=== PATIENT | male | born 1970 | race African-American/Black ===

== ENCOUNTER 2024-04-18 03:09 | Emergency (ER) | payer SELFPAY ==
--- NOTE | ~2024-04-18 | XR_ITS ---
Portable chest x-ray Comparison: None Clinical History: Orthopnea Findings: Lungs are clear, without focal consolidation or pleural effusion. Cardiomediastinal silho uette is prominent. Bones and soft tissues are unremarkable. Impression: Clear lungs. Suspected mild cardiomegaly. Reviewed, dictated and finalized at location . RCYCLE DELIVERER Impression: Clear lungs. Suspected mild cardiomegaly.
--- NOTE | 2024-04-18 03:17 | ECG_ITS ---
Test Date: 2024-04-18 03:37:57 Measurements Intervals [place] Rate: 63 P: 51 NM: 202 QRS: -38 QRSD: 94 T: 87 QT: 373 QTc: 384 Interpretive Statements SINUS RHYTHM MARKED LEFT AXIS DEVIATION [QRS AXIS < -30] NONSPECIFIC ST & T-WAVE ABNORMALITY No previous ECG available for comparison Electronically Signed On 04-18-2024 16:15:42 MENTAL HEALTH CLINICIAN by Iliana Ozuna M.D.
[2024-04-18 03:32] VITALS: BP 151/99; PULSE 72; RESP 16; TEMP 36.6; O2SAT 99
--- NOTE | 2024-04-18 04:24 | ED.SOB ---
HPI - SOB/Dyspnea General Chief Complaint: Shortness of Breath/Dyspnea Stated Complaint: SOB only when laying down and cough Time Seen by Provider: 04/18/24 04:11 History of Present Illness HPI Narrative: 53-year-old male with a past medical history including hypertension presenting to the emergency depart with URI type symptoms. He states he has been having a nonproductive dry cough for the last 24 hours associated with cough, congestion, difficulty laying in bed lying flat to sleep. He states he was otherwise in his normal state of health and denies any recent injuries or illnesses. No chest pain or difficulty breathing at rest. No recent medication changes, no nausea, vomiting, abdominal pain or back pain. Related Data Allergies Allergy/AdvReac Type Severity Reaction Status Date / Time No Known Allergies Allergy Verified 04/18/24 03:11 Review of Systems Review of Systems: As reviewed above in HPI Exam Narrative: GENERAL: [Well-appearing, well-nourished, and in no acute distress.] HEAD: [Normocephalic, atraumatic.] EYES: [PERRLA and EOMI.] ENT: Nares clear, no rhinorrhea or epistaxis. Mucous membranes moist. NECK: Supple. CHEST: [Clear to auscultation. No respiratory distress.] HEART: [Regular rate and rhythm]. No murmur heard. [Normal peripheral pulses.] ABDOMEN: [Soft, nondistended], [nontender], [No rigidity or guarding] EXTREMITIES: Normal range of motion. [No edema.] SKIN: Warm, dry, no rash. NEURO: [No focal deficits]. Alert and oriented [x3.] PSYCH: [Normal mood and affect.] Course Vital Signs Vital signs: Vital Signs Temperature 36.6 C 04/18/24 03:32 Pulse Rate 72 04/18/24 03:32 Respiratory Rate 16 04/18/24 03:32 Blood Pressure 151/99 H 04/18/24 03:32 Pulse Oximetry 99 04/18/24 03:32 Oxygen Delivery Room Air 04/18/24 03:32 Temperature 36.6 C 04/18/24 03:32 Pulse Rate 72 04/18/24 03:32 Respiratory Rate 16 04/18/24 03:32 Blood Pressure 151/99 H 04/18/24 03:32 Pulse Oximetry 99 04/18/24 03:32 Oxygen Delivery Room Air 04/18/24 04:33 MDM - SOB/Dyspnea MDM Narrative Medical decision making narrative: 53-year-old otherwise healthy appearing male with history of hypertension presenting to the emergency room with chief complaint of URI type symptoms including dry cough, congestion, shortness a breath when he is trying to sleep. Symptoms going on for about 1 day. Previous to this he was otherwise in his normal state of health. No chest pain or difficulty breathing right now. He is saturating well on room air, afebrile, no tachycardia or tachypnea. He has clear breath sounds throughout, no posterior oropharyngeal swelling or erythema. We will swab him for COVID flu and RSV and obtain a chest x-ray. Patient will be treated symptomatically with pseudoephedrine, Flonase and given a ibuprofen. Patient tested positive for influenza A his chest x-ray was independently reviewed by myself. I do not appreciate any solid consolidations, pneumonia, pneumothorax or any acute concerns. Patient was re-evaluated symptomatic improvement and stable for discharge home at this time with return precautions and expected management instructions for his influenza. Patient would not benefit primarily for Tamiflu initiation given his lack of severe symptoms, lack of any significant comorbidities and otherwise good functional status at this time. Medical Records Attestation: I reviewed the patient's medical records. Lab Data Attestation: I reviewed the patient's lab results. Labs: Lab Results 04/18/24 Range/Units 04:26 Influenza A (RT-PCR) Positive A (Negative) Influenza B (RT-PCR) Negative (Negative) RSV (RT-PCR) Negative (Negative) SARS-CoV-2 RNA (RT-PCR) Negative (Negative) Imaging Data Attestation: I personally reviewed and interpreted this imaging study as follows: My impression: No pneumonia, pneumothorax or effusion Discharge Plan Discharge Clinical Impression: Influenza A Patient Disposition: Home, Self-Care Condition: Stable Instructions: Antibiotic Form, Influenza (ED) Additional Instructions: You have influenza a which is a viral illness causing an upper respiratory infection. He do not have any kind of pneumonia or complication from this. We recommend symptomatic controlling medications that he can obtain [id number]. Tylenol, ibuprofen for fever pain control, cough syrup for cough suppressing medications. Follow-up with regular doctor on outpatient basis. Patient Language: Scottish Prescriptions: New acetaminophen [Tylenol Extra Strength] 500 mg tablet 1,000 mg PO TID PRN (Reason: pain) Qty: 30 0RF guaifenesin [Mucinex] 1,200 mg tablet extended release 12hr 1,200 mg PO Q12H Qty: 20 0RF loratadine [Claritin] 10 mg tablet 10 mg PO DAILY PRN (Reason: allergy symptoms) Qty: 20 0RF Follow-up/Referrals: PHYSICIAN,COMMUNICATIONS PROFESSIONAL [Primary Care Provider] - Time of Disposition: 05:17
[2024-04-18] MEDS: IBUPROFEN 600 MG TABLET PO (04:46)
[2024-04-18] MEDS: PSEUDOEPHEDRINE HCL 30 MG TABLET PO (04:47)
[2024-04-18] MEDS: FLUTICASONE PROPIONATE 0.05% NA SPR 16 GM BTL (*BKC) 2 SPRAY NASAL (04:47)
[2024-04-18 05:05] LABS: Influenza A QL RT-PCR Positive (Negative); Influenza B QL RT-PCR Negative (Negative); RSV RNA, RT-PCR Negative (Negative); SARS-CoV-2 RNA PCR Negative (Negative)
--- OUTSIDE RECORDS SUMMARY | 2024-04-18 05:25 | XMS_ITS | Continuity of Care Document ---
Author Organization [facility] Address [address] [place] [address] Phone Care Team Providers Care Manager Math Name Role Phone Kenyetta Nixon RDH Unavailable Unavailab le Allergies, Adverse Reactions, Alerts Substance Reaction Status Criticality No Known allergies Medications Medication Instructions Dosage Effective Dates (start - stop) Status Comments amlodipine 2.5 mg tablet take 1 tablet by oral route every day 2.5 MG - Active Chantix Starting Month Dl 0.5 mg (11)-1 mg (42) tablets in dose pack take as directed on pack - Active Bystolic 10 mg tablet take 1 tablet (10M G) by oral route every day 10 MG - Active Zantac Maximum Strength 150 mg Tab Take 1 tablet by mouth 2 times daily. - Active amlodipine 5 mg tablet take 1 tablet by oral route every day 5 MG - Active Procedures Procedure Date Dental Intake Prophylaxis: Adult Oral Hygiene Instructions Dental Treatment Complete Dental Note Approval Code Advance Directives Directive Yes / No Effective Date File Name No Information Encounters Encounter Description Practice Location Reason(s) For Visit Diagnoses Date Provider [address], [address], [place] tel:[phone] [facility] No Information Tiffani Kumari. [address] [place], [address], [place]. tel:[phone] [address] [place], [address], tel:[phone] [facility] No Information 4 Edwar Jacob. [address] [place], [place], [facility], . tel:[phone] [facility], [address] [place] [address], [address], tel:[phone] [facility] No Information 3 Tiffani Kumari. [address] [place], [address], [place]. tel:[phone] [facility], [address] [place] [address], [address], [place] tel:[phone] [facility] [place] No Information 3 Layton Clay. [address] [place] [address], [facility], . tel:[phone] [facility], [address] [place] [address], [facility], [place] tel:[phone] [facility] Dysuria (chief complaint) Encounter for screening, unspecifiedDysuriaUn protected sexual intercourse 3 Jessica Bernardo. [address] [place] [address], [facility], . tel:[phone] [facility], [address] [place] [address], [facility], tel:[phone] [facility] [place] [facility] No Information 2 Paradsuraj Tafoya. [address] [place] [address], [facility], . tel:[phone] [facility], [address] [place] [address], [facility], tel:[phone] [facility] [place] Encounter for dental exam and cleaning w/o abnormal findings 2 Jennifer Vital. [address] [place], [place], [facility], . tel:[phone] [facility], [address] [place] [address], [facility], tel:[phone] [facility] [place] Encounter for dental exam and cleaning w/o abnormal findings Nov- 1 Raymond Uriarte. [address], [id number] [address] [place] [address], [address], [place]. tel:[phone] [place] [address], [address] [place] [address], [address], [place] tel:[phone] [facility] [place] Encounter for dental exam and cleaning w/o abnormal findings Sep-0 1 Jennifer Vital. [address] [place], [place], [facility], . tel:[phone] [place] [address], [address] [place] [address], [address], [place] tel:[phone] [place] [address] Encounter for dental exam and cleaning w/o abnormal findings 0 Benberry Latonya. [address], [id number] [address] [place] [address], [id number], [place]. tel:[phone] [place] [address], [address] [place] [address], [address], [place] tel:[phone] [facility] Encounter for dental exam and cleaning w/o abnormal findings 0 Benberry Latonya. [address], [id number] [address] [place] [address], [id number], [place]. tel:[phone] [facility], [address] [place] [address], [address], [place] tel:[phone] [facility] Encounter for dental exam and cleaning w/o abnormal findings 0 Raza Osullivan. [address] [place], [address], [place]. tel:[phone] [facility], [address] [place] [address], [address], [place] tel:[phone] [place] [address] Encounter for dental exam and cleaning w/o abnormal findings 0 Valery Quick. 785 [facility], [id number] [address] [place] [address], [address], [place]. tel:[phone] [facility], [address] [place] [address], [address], [place] tel:[phone] [facility] Encounter for dental exam and cleaning w/o abnormal findings 1201 8 Y[facility]ms. 105 [facility], [id number] [address] [place] [address], [address], [place]. tel:[phone] [facility], [address] [place] [address], [address], [place] tel:[phone] [facility] Encounter for dental exam and cleaning w/o abnormal findings Jun-1 0201 8 Quang Meier. [address] [place], [address], [place]. tel:[phone] [facility], [address] [place] [address], [address], [place] tel:[phone] [facility] Encounter for dental exam and cleaning w/o abnormal findings Basim-0 6-201 7 Aga Donohue. [address] [place], [address], [place]. tel:[phone] [facility], [address] [place] [address], [address], [place] tel:[phone] [facility] Encounter for dental exam and cleaning w/o abnormal findings Fe-2 3-201 7 Maribeth Howellberly. 105 [facility], [id number] [address] [place] [address], [id number], [place]. tel:[phone] [facility], [address] [place] [address], [address], [place] tel:[phone] [facility] [place] Encounter for dental exam and cleaning w/o abnormal findings Basim-0 8-201 6 Barry León. [address] [place], [address], [place]. tel:[phone] [facility], [address] [place] [address], [address], [place] tel:[phone] [facility] [place] Encounter for dental exam and cleaning w/o abnormal findings 2 6 Layton Palmeri. [address] [place], [address], [place]. tel:[phone] [facility], [address] [place] [address], [address], [place] tel:[phone] [facility] [place] DENTAL EXAMINATION 2 5 Raymond Uriarte. 105 [facility], [id number] [facility], [place], [address], [place]. tel:[phone] [facility], [address] [place] [address], [address], [place] tel:[phone] [facility] DENTAL EXAMINATION 6 5 Vero Esparza. 105 [facility], [place], [address], [place]. tel:[phone] [facility], [address] [place] [address], [address], [place] tel:[phone] [facility] DENTAL EXAMINATION 5 Maribeth Hanks. 105 [facility], [id number] [place], [address] [place] [address], [place]. tel:[phone] [facility], [address] [place] [address], [address], [place] tel:[phone] [place] [address] dysuria (chief complaint) Pain, UrinationSmoker, Current, 2- 4 Polly Peyton. 70 [facility], [id number] [address] [place] [address], [facility], [place]. tel:[phone] [facility], [address] [place] [address], [address], [place] tel:[phone] [facility] b/p check (chief complaint) HTN, BenignBronchitis, Acute 0- 2 Polly Peyton. 70 [facility], [id number] [place], [address], [place]. tel:[phone] [facility], [address] [place] [address], [facility], [place] tel:[phone] [place] [address] htn (chief complaint) HTN, Benign Mar- 2 Polly Todd. 70 [facility], [id number] [address] [place] [address], [facility], . tel:[phone] [facility], [address] [place] [address], [facility], tel:[phone] [facility] [place] DENTAL EXAMINATION 1 Yoly Simms. [address], [id number] [address] [place] [address], [facility], [place]. tel:[phone] [place] [address], [address] [place] [address], [facility], tel:[phone] [facility] [place] DENTAL EXAMINATION 1 Valery Blancosyd. [address], [id number] [address] [place] [address], [facility], . tel:[phone] [facility], [address] [place] [address], [facility], tel:[phone] [address] [place] [address] discuss abnormal blood results (chief complaint) ITP, Ideopathic Thrombocytopenic Purpura, Tidal Platelet Dysgenesis May-2 0-200 9 Draganescu Divina. [address], [id number] [address] [place] [address], [facility], . tel:[phone] [facility], [address] [place] [address], [facility], tel:[phone] [address] [place] [address] f/u from ER. (chief complaint) pain on LT. leg (chief complaint) AppendectomyNEUROPAT HY - MONONEURITIS NOS May-0 3-200 9 Draganescu Divina. [address], [id number] [address] [place] [address], [facility], [place]. tel:[phone] Family History Family Member Type Diagnosis Age At Onset Brother Problem (finding) hypertension Payers Payer name Insurance type Covered constitution party ID Authoriza tion(s) [employer] [place] [id number] Social History Type Description Quantity Date Captured Comments Sex Male Smoking Status No Information Sexual Orientation Straight or heterosexual Gender Identity Male Chief Complaint And Reason For Visit No Information Plan Of Treatment Date Type Action Status Goal FOBT/FIT. Due on due Goal SBIRT. Due on du e Goal Zoster vaccine (). Due on due Goal Depression screening. Due on due Goal FOBT. Due on due Goal Hep B Surface Ab, Quant. Due on due Goal FIT. Due on due Goal Colonoscopy. Due on 023 due Goal Hep B Core Ab, IgM. Due on due Goal Unhealthy drug use screening . Due on due Goal Tdap. Due on due Goal Lipid panel. Due on 023 due Goal Self-Management Goals. Due o n due Goal Influenza vaccine. Due on due Goal Hepatitis C screening. Due o n due Goal Tdap/Td. Due on due Goal ECG. Due on due Goal Urinalysis due Goal Tdap/Td. Due on due Goal HCV reflex to Quant RT PCR. Due on due Goal Hep B Core Ab, IgM. Due on due Goal Lipid panel. Due on due Goal Colonoscopy. Due on due Goal FOBT/FIT. Due on due Goal Hep B Surface Ab, Quant. Due on due Goal SBIRT. Due on du e Goal Zoster vaccine (). Due on due Goal Influenza vaccine. Due on due Goal HIV 1/0/2 Ag/Ab With Reflex. Due on due Goal Self-Management Goals. Due o n due Goal Urinalysis due Goal ECG. Due on due Goal FOBT/FIT. Due on due Goal Hep B Core Ab, IgM. Due on due Goal HIV 1/0/2 Ag/Ab With Reflex. Due on due Goal HCV reflex to Quant RT PCR. Due on due Goal Influenza vaccine. Due on due Goal SBIRT. Due on du e Goal Hep B Surface Ab, Quant. Due on due Goal Self-Management Goals. Due o n due Goal Tdap/Td. Due on due Goal Zoster vaccine (). Due on due Goal Lipid panel. Due on due Goal Colonoscopy. Due on due Goal ECG. Due on due Goal Urinalysis due Referral Ordered: Urinalysis ordered History Of Present Illness Encounter Date Complaint History Of Prese nt Illness Dysuria Onset: 1 week ag o. The patient describes it as burning. Symptom is aggravated by sexual activity. Additional information: sexually active, Patient with dysuria x1 week, reports burning on urination, increased frequency. Patient notes sexual activity approx 1 month ago, will also order STI panel.. Instructions Date Instruction Additional Infor elias STI panel orderedObt ain labs, anything abnormal you will receive a call/letter. Related to Unprotected sexual intercourse US consistent with U TIRx Bactrim x7 days Related to Dysuria Review medication side effects R elated to HTN, Benign Review medications Related to HT N, Benign Prescribe medications Related to HTN, Benign Assessments Type Assessment Date No Information
--- OUTSIDE RECORDS SUMMARY | 2024-04-18 05:25 | XMS_ITS | Clinical Summary ---
Author Organization [facility] Address [address] [place] [address] Care Team Providers Care District Court Justice Name Role Phone Fercho Gómez MD Primary Care Provider Allergies No known active allergies Medications Medication Sig Dispensed Refills Start Date End Date Status valsartan-hydrochlo roTHIAZIDE 320-25 MG per tablet valsartan 320 mg-hydrochlorothia zide 25 mg tablet TAKE 1 TABLET BY MOUTH EVERY DAY Active diltiazem ER 240 MG 24 hr capsule Take 1 capsule by mouth daily. 90 capsule 4 01/09/2022 Active carvedilol 25 MG tablet Take 1 tablet by mouth 2 times a day. 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 Hypertension Social History Tobacco Use Types Packs/Day Years Used Date Smoking Tobacco: Every Day Cigars Smokeless Tobacco: Never Tobacco Cessation:Ready to Q uit: Not Asked; Counseling Given: Not Answered Alcohol Use Standard Drinks/Week Comments Yes 0 (1 standard drink = 0.6 oz pur e alcohol) PHQ-2 Answer Date Recorded PHQ-2 Score 1 01/11/2023 Sex and Gender Information Value Date Recorded Sex Assigned at Male 01/11/2023 9:19 AM EDT Gender Identity Male 01/11/2023 9:19 AM EDT Sexual Orientation Straight 01/11/2023 9: 19 AM EDT Job Start Date Occupation Industry Not on file Not on file Not on file Last Filed Vital Signs Vital Sign Reading Time Taken Comments Blood Pressure 167/113 01/11/2023 9:17 AM EDT Pulse 59 01/11/2023 9:17 AM EDT Temperature 36 ??C (96.8 ??F) 01/11/2023 9:17 AM EDT Respiratory Rate 20 11/26/2022 10:08 AM EDT Oxygen Saturation - - Inhaled Oxygen Concentration - - Weight 90.3 kg (199 lb) 01/11/2023 9:17 AM EDT Height 185.4 cm (6' 1 ) 01/11/2023 9:17 AM EDT Body Mass Index 26.25 01/11/2023 9:17 AM EDT Plan of Treatment Health Maintenance Due Date Last Done Comments Blood Pressure Screening 1968 CT COLONOGRAPHY Q 5 years 1968 FIT/FOBT Q 1 Year 1968 FLEXIBLE SIGMOIDOSCOPY Q 5 years 1968 HEPATITIS C SCREENING 1968 Pneumococcal 0-64 Vaccine (1 of 2 - PCV) 1974 HIV SCREENING ONCE 07/12/1983 COLOGUARD Q 3 YEARS 1986 LIPIDS 1986 DTAP/TDAP/TD Vaccine (1 - Tdap) 07/12/1987 Diabetes Screening 2013 PSA COUNSELING 2018 ZOSTER VACCINES (1 of 2) 2018 COVID-19 Vaccine ( season) 2023 01/29/2022, 10/20/2020, 06/17/2020, Additional history exists INFLUENZA Vaccine (#1) 2023 , 12/31/2016, 04/03/2016 COLONOSCOPY 02/04/2031 02/04/2021 COMBO COLO Topic NEW 02/04/2031 Abdominal Aortic Aneurysm (AAA) Screening / Surveillance Completed 08/27/2020 HPV Vaccine Aged Out No longer eligi ble based on patient's age to complete this topic Hepatitis A Vaccine Aged Out No longe r eligible based on patient's age to complete this topic Care Teams District [address] Justice Relationship Specialty Start Date End Date Fercho Gómez MD [address], [address] [place] [address] PCP - General Internal Medicine 10/16/21
--- OUTSIDE RECORDS SUMMARY | 2024-04-18 05:25 | XMS_ITS | Encounter Summary ---
Author Organization [facility] Address [address] [place] [address] Care Team Providers Care Wire Communications Engineer Name Role Phone Fercho Gómez MD Primary Care Provider Encounter Details Date Type Department Care Team (Late st Contact Info) Description 11/26/2022 Procedure [facility] [address] [facility] [place] [address] Social History Tobacco Use Types Packs/Day Years Used Date Smoking Tobacco: Every Day Cigars Smokeless Tobacco: Never Alcohol Use Standard Drinks/Week Comments Yes 0 (1 standard drink = 0.6 oz pur e alcohol) PHQ-2 Answer Date Recorded PHQ-2 Score 0 11/26/2022 Sex and Gender Information Value Date Recorded Sex Assigned at Male 01/11/2023 9:19 AM EDT Gender Identity Male 01/11/2023 9:19 AM EDT Sexual Orientation Straight 01/11/2023 9: 19 AM EDT Job Start Date Occupation Industry Not on file Not on file Not on file documented as of this encounter Functional Status Functional Status Response Date of Assess ment Does this person have difficulty dressing or bat marco? No 11/26/2022 documented as of this encounter Plan of Treatment Not on file documented as of this encounter Visit Diagnoses Not on filedocumented in this encounter Care Teams Wire Communications Engineer Relationship Specialty Start Date End Date Fercho Gómez MD [address], [address] [place] [address] PCP - General Internal Medicine 10/16/21 documented as of this encounter
--- OUTSIDE RECORDS SUMMARY | 2024-04-18 05:25 | XMS_ITS | Clinical Summary ---
Author Organization [facility] Address [address] [place] [address] Phone Care Team Providers Care Husbandry Technician Name Role Phone Unavailable Primary Care Provider Unavailabl e Immunizations Name Administration Dates Next Due Pfizer Sars-Cov-2 Vaccination 12Yrs+ Purple Top 06/17/2020,05/27/2020 Social History Tobacco Use Types Packs/Day Years Used Date Smoking Tobacco: Never Assessed Sex and Gender Information Value Date Recorded Sex Assigned at Not on file Gender Identity Not on file Sexual Orientation Not on file Plan of Treatment Health Maintenance Due Date Last Done Comments TDAP Vaccine 07/12/1979 Annual BMI Assessment 1986 Cervical Cancer Screening ev lisa 3 Years 1986 Cervical Cancer Screening 1986 Provide Tobacco Cessation Counseling 1986 Td Vaccine 1986 Tobacco Screening 1986 Hepatitis B Vaccines (1 of 3 - 19+ 3-dose series) 07/12/1987 Cervical Cancer Screening ev lisa 5 years 1998 Breast Cancer Screening 2008 Mammogram Every 3 Months 2008 Mammogram Every 6 Months 2008 Mammogram every 1 year 2008 Mammogram every [address] Colonography 2013 Colon Cancer Screening 2013 Colonoscopy 2013 FIT DNA 2013 Fecal Occult Blood Testing 2013 Flexible Sigmoidoscopy 2013 Zoster Vaccines (1 of 2) 2018 Influenza Vaccine (#1) 2023 DTaP,Tdap,and Td Vaccines (N o Doses Required) Completed HIB Vaccines Aged Out No longer eligi ble based on patient's age to complete this topic IPV Vaccines Aged Out No longer eligi ble based on patient's age to complete this topic Meningococcal Vaccine Aged Out No florencio mariaelena eligible based on patient's age to complete this topic Pneumococcal Vaccine: Pediat rics (0 to 5 Years) and At-Risk Patients (6 to 64 Years) Aged Out No longer eligible b ased on patient's age to complete this topic
--- OUTSIDE RECORDS SUMMARY | 2024-04-18 05:25 | XMS_ITS ---
Author Organization 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, site unspecified [facility] Unspecified ptosis of right eyelid [facility] Headache, unspecified [facility] Cervicalgia Insp [facility] Insurance Providers Payer name Policy type / Coverage type Policy ID Covered constitution party ID Covered constitution party's relationship to santos Policy Santos Plan Information BLUE CROSS/BLUE SHIELD PPO Spouse BENJI JAVIER [id number] 1 [employer] BC/BS MANAGED CARE PPO Spouse BENJI LICENSED REAL ESTATE BROKER [id number] 1 BLUE CROSS/BLUE SHIELD PPO Spouse BENJI LICENSED REAL ESTATE BROKER [id number] 1 [employer] BC/BS MANAGED CARE PPO Spouse BENJI JAVIER [id number] 1 [facility] ng Self NKEMDIRIM JAVIER 0 [employer] [facility] [id number] Self NKEMDIRIM LICENSED REAL ESTATE BROKER 0 [employer] [facility] [id number] Self NKEMDIRIM JAVIER 0 BLUE CROSS [place] PPO Spouse BENJI JAVIER [id number] 1 BLUE CROSS/BLUE SHIELD PPO Spouse BENJI JAVIER [id number] 1 [employer] BC/BS MANAGED CARE PPO Spouse BENJI HERRERA [id number] 1 Vital Signs Vital Sign Value Time Taken Authors Informants SEXUAL_ORIEN GENDER_ID TRANSPLANT FNCHANGECHEK PREFPHONE COMMONENROLL FULLREG [id number] NAMECHANGECH CONVERSATION NOP_STATUS CONSENT PAPERFORMS [id number]
--- OUTSIDE RECORDS SUMMARY | 2024-04-18 05:25 | XMS_ITS | Data Portability ---
Author Organization [employer] Address [address] [place] [id number] Care Team Providers Care Clock Repairer Name Role Phone JADEYAMILE FOSTER Primary Care Provider [phone] YAEL NINA OTHER LETHA MCKEON Manager Labor Delivery Assessment No assessment recorded. Plan of Treatment Reminders Order Date Submit Date Provider Last Modified By Organization Details Last Modified Time Details Appointments None recorded. Lab None recorded. Referral gastroenter ologist referral 2023 024 ayesha Nance MD, [address], [place], [address], 4 08:21:58 vascular surgeon referral - Please avoid any antiplatele t or DOAC's. He has history of brain AV malformatio ns. 2023 024 [email or web address] 4 Nasreen Montaño MD, [address], [address], [place], [address], 4 08:30:28 Procedures None recorded. Surgeries None recorded. Imaging CT, chest, w/o contrast 2023 024 [email or web address] 1 [facility] ? [address], [address], [address], [place], [address], 4 09:46:11 CT, coronary calcium score 2023 024 MARCIANO [facility] ? [address], [address], [address], [place], [address], 4 09:41:08 CT, chest, w/o contrast 2023 024 [facility] ? [address], [address], [place], [address], 4 08:07:59 US, duplex, arterial, lower extremity, complete 2023 024 [facility] [place], [address], [address], [place], [address], 4 08:51:51 US, duplex, venous, lower extremity, complete 2023 024 [facility] [place], [address], [address], [place], [address], 4 11:30:50 Medication Orders Combivent Respimat 20 mcg-100 mcg/actuati on solution for inhalation 2023 024 [id number], [address] [place], [address], 4 09:54:11 mefloquine 250 mg tablet 2023 024 [id number], [address], [place], [address], 4 15:21:46 tadalafil 20 mg tablet 2023 024 [id number], [address], [place], [address], 4 14:24:01 Patient TargetsNo targets recorded. Patient Instructions Encounter Date Encounter Id Patient Instructions Last Modified By Organization Details Last Modified Time 04/21/2023 [id number] Brain Arterioven ous Malformation Repair: Before Your Surgery Not available 04/21/2023 09:57:06 high blood pressure: care instructions Not available 04/21/2023 09:57:06 learning about h igh blood pressure Not available 04/21/2023 09:57:06 I personally interviewed and examined the patient. Discussed with the resident. Agree with findings and plan. Discussed at length with the patient. Agree with plan for doing coronary CT before starting him on statins. For repeat CT chest in May for incidental finding of 2 mm lung nodule. Not available 04/21/2023 09:57:03 08/19/2023 [id number] chronic obstruct talib pulmonary disease (COPD): care instructions Not available 08/19/2023 09:54:05 complete PFT w/ post bronchodilator spirometry* jbeteta Not available 08/26/2023 08:35:25 Brain Arterioven ous Malformation Repair: Before Your Surgery Not available 08/19/2023 09:54:06 high blood pressure: care instructions Not available 08/19/2023 09:54:05 learning about h igh blood pressure Not available 08/19/2023 09:54:05 I personally interviewed and examined the patient. Discussed with the resident. Agree with findings and plan. Agree with mefloquine prophylaxis for travel to [place]. Incidental finding of dilated thoracic aorta. Will continue to monitor by annual CT chest. Agree with PFTs for possible emphysema. He does have a long history of smoking. Agree with Combivent to be taken on as-needed basis. Further plan as per PFT findings. Incidental finding of groundglass appearance right lung. He was exposed to a lot of dust and fumes back in [place]. Will repeat CT chest in 3 months to follow-up. Blood pressure has been stable. No recent episodes of atrial fibrillation. Followed by cardiology as well. Not available 08/19/2023 09:56:36 10/26/2023 [id number] high blood pressure: care instructions Not available 10/26/2023 15:54:54 learning about h igh blood pressure Not available 10/26/2023 15:54:54 11/18/2023 [id number] Peripheral Arter ial Disease (PAD): Care Instructions Not available 11/18/2023 10:06:50 high blood pressure: care instructions Not available 11/18/2023 10:06:50 learning about h igh blood pressure Not available 11/18/2023 10:06:50 learning about healthy weight Not available 11/18/2023 10:06:50 I personally interviewed and examined the patient. Discussed with the resident. Agree with findings and plan. No localized stenosis in right lower extremity amenable to any intervention. Continue with cardiovascular risk modification. Avoid aspirin or any anticoagulation because of history of brain AV malformations. Not available 11/18/2023 10:05:59 02/29/2024 [id number] high blood pressure: care instructions Not available 02/29/2024 14:23:44 learning about h igh blood pressure Not available 02/29/2024 14:23:44 Virtual visit wa s performed using [employer] as platform. 25 minutes were spent on the visit. Not available 02/29/2024 14:23:26 Reason for Referral [employer] Manager Referral for History of polyp of colon Referring Physician: Yamile Jones, Internal Medicine, Encounter Date: 04/21/2023 Vascular Surgeon Referral fo r Peripheral vascular disease Please avoid any antiplatelet or DOAC's. He has history of brain AV malformations. Referring Physician: Yamile Jones, Internal Medicine, Encounter Date: 11/18/2023 Results Created Date Observation Date Name Description Value Unit Range Abnormal Flag Note LastModifiedBy Organization Detail LastModifiedTime 04/28/19 24 04/28/2023 CT, coron jessi calci um score CT Cardia c Scorin g [facility] [address], [place], [address], 04/28/2023 16:51:21 05/27/19 24 04/28/2023 CT, chest , w/o contr ast No observ ation record ed. [facility] ? [address], [place], [address], 05/27/2023 16:55:46 09/02/19 24 08/23/2023 compl ete PFT w/ post [facility] hodil ator mainor metry * No observ ation record ed. Not Available 10/25 15:34:09 10/26/19 24 10/22/2023 CT, chest , w/o contr ast No observ ation record ed. [email or web address] Not Available 10/25 15:49:52 11/05/19 24 11/03/2023 US, duple x, venou s, lower extre mity, compl ete No observ ation record ed. [email or web address] [place] [address] [facility] [place] [address], [place], [address], 11/18/2023 09:53:18 11/18/19 24 11/03/2023 US, duple x, arter ial, lower extre mity, compl ete No observ ation record ed. [email or web address] [address] [place] [address], [place], [address], 11/19/2023 10:49:31 11/18/19 24 US, duple x, arter ial, lower extre mity, compl ete No observ ation record ed. [address] [place] [address], [place], [address], 11/19/2023 10:49:31 Result Notes None recorded. Problems Name Problem SNOMED Code Status Onset Date Resolution Date Notes Provider Name and Address Organization Details Recorded Time Acute sinusiti s 38870937 Completed 12/31/2016 YAMILE JONES MD [address] [place] [address], [address], [place] [employer], [place] 7 08:47:12 [facility] hyperten adonay 58952470 Active YAMILE JONES MD [address] [place] [address], [address], [place] [employer], [place] 6 10:17:04 Leukocyt osis 377372052 Completed 12/31/2016 YAMILE JONES MD [address] [place] [address], [address], [place], [place] 3 14:02:34 Hyperten sive disorder 42633039 Completed 201304/03/2016 REPORTED BY: GERARD JONES MD [address] [place] [address], [address], [place] [employer], [place] 7 08:52:00 [facility] 389172093 Completed 12/31/2016 YAMILE JONES MD [address] [place] [address], [address], [place] [employer], [place] 7 08:47:49 Body mass index 25-29 - overweig ht 733204707 Active 2016 Fredis cedeno, [employer], [employer] 9 10:51:00 Tobacco dependen ce in [facility] 337134645 Completed 201709/07/2019 YAMILE JONES MD [address] [place] [address], [address] 1, [place] [employer], [place] 1 10:21:28 Cigarett e smoker 18840905 Completed 201712/27/2018 YAMILE JONES MD [address] [place] [address], [address] 1, [place] [employer], [place] 9 09:15:41 Acquired arteriov enous malforma tion 01556666755 08 Completed 201812/27/2018 YAMILE JONES MD [address] [place] [address], [address], [place] 9 09:15:35 Light cigarett e smoker (1-9 cigs/day ) 603191658 Active 2018 YAMILE JONES MD [address] [place] [address], [address], [place] [employer], [place] 9 08:59:03 Cerebral arteriov enous malforma tion 494244668 Active 2018 YAMILE JONES MD [address] [place] [address], [address] 1, [place] 9 09:15:31 Paroxysm al atrial fibrilla tion 098794961 Active 2019 YAMILE JONES MD [address] [place] [address], [address] 1, [place] 0 16:18:41 Patient advised about anti-mal aria prophyla xis 451539596 Active 2020 YAMILE JONES MD [address] [place] [address], [address] 1, [place] 13:21:16 Prediabe edy 718580916 Active 2020 YAMILE JONES MD [address] [place] [address], [address] 1, [place] 15:28:08 Family history of aneurysm of abdomina l aorta 408619227 Active 2020 YAMILE JONES MD [address] [place] [address], [address] 1, [place] 15:28:09 Pure hypercho lesterol emia 869903775 Active 2020 YAMILE JONES MD [address] [place] [address], [address] 1, [place] 10:21:19 Tobacco dependen ce in remissio n 804519827 Active 2020 YAMILE JONES MD [address] [place] [address], [address] 1, [place] [employer], [place] 1 10:21:28 History of polyp of colon 105617717 Active 2020 YAMILE JONES MD [address] [place] [address], [address] 1, [place] [employer], [place] 1 15:26:48 Acid reflux 081752475 Active 2021 YAMILE JONES MD [address] [place] [address], [address] 1, [place] [employer], [place] 2 09:30:10 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 077842229 Active 2021 YAMILE JONES MD [address] [place] [address], [address] 1, [place] [employer], [place] 2 13:44:49 Pain of left ankle joint 45228031902 515574 Completed 202102/09/2023 Earlene Tesfaye null, [facility], [employer] 3 21:17:07 Ascendin g aorta dilatati on 441181990 Active 2021 YAMILE JONES MD [address] [place] [address], [address] 1, [place] [employer], [place] 2 10:29:29 Primary erectile dysfunct ion 736097030 Active 2021 YAMILE JONES MD [address] [place] [address], [address] 1, [place] [employer], [place] 2 10:33:10 Leukocyt osis 655088935 Active 2022 YAMILE JONES MD [address] [place] [address], [address] 1, [place] [employer], [place] 3 14:02:34 Solitary nodule of lung 300568621 Active 2022 YAMILE JONES MD [address] [place] [address], [address] 1, [place] [employer], [place] 3 14:49:15 Migraine without aura 65310876 Active 2022 YAMILE JONES MD [address] [place], [address], [employer], [place] 3 09:02:24 Peptic ulcer 09442055 Active 2023 Radha cedeno [facility], [employer] 4 09:11:28 Gastroes ophageal reflux disease without esophagi tis 276135977 Active 2023 Radha cedeno, What[facility], [place] 4 09:26:43 Hyperten sive disorder 76842431 Completed 201307/22/2015 REPORTED BY: GERARD JONES MD [address] [place], [address], [employer], [employer] 7 08:52:00 Problem Notes None recorded. Procedures Surgical History Date Name Laterality Status Provider Name and Address Organization Details Recorded Time 02/05/20 colonoscopy and biopsy of colon completed Fredis [place] [facility], [facility] 02/10/2021 11:46:01 Appendectomy completed Fredis [place] [facility] 08/08/2015 14:56:00 Imaging Results Imaging Date Name Status LastModified by Organization Details LastModified Time 04/28/2023 CT, coronary calcium score [email or web address] [address] [facility] [address], [place], [address], 04/28/2023 16:51:21 04/28/2023 CT, chest, w/o contrast completed [facility] ? [address], [place], [address], 05/27/2023 16:55:46 08/23/2023 complete PFT w/ post bronchodilator spirometry* [facility] Information not available 10/26/2023 15:34:09 10/22/2023 CT, chest, w/o contrast completed Information not available 10/26/2023 15:49:52 11/03/2023 US, duplex, venous, lower extremity, complete completed [facility] [place] [address] [place], [address], 11/18/2023 09:53:18 11/03/2023 US, duplex, arterial, lower extremity, complete completed [facility] [place] [address] [place], [address], 11/19/2023 10:49:31 11/18/2023 US, duplex, arterial, lower extremity, complete [facility] [place] [address] [place], [address], 11/19/2023 10:49:31 Procedure Notes None recorded. Medical Equipment None Reported. Allergies Allergen ID Allergen Name Allergen Category Reaction Reaction Severity Criticality Documentation Date Start Date Code Code System Note Provider Name and Address Organization Details Recorded Time 72208 azilsarta n / chlorthal idone medicatio n abdominal pain moderate Not available 05/13/2017 26846 43 RxNorm KRISTINA [employer]att [employer], [employer] 0 13:44:37 Medications Name Sig Start Date Stop Date Status Note LastModified by Organization Details LastModified Time cyclobenz aprine 10 mg tablet TAKE 1 TABLET BY MOUTH THREE TIMES A DAY NEEDED 08/08 completed Not Available Not Available Not Available promethaz ine-DM 6.25 mg-15 mg/5 mL oral syrup Take 5 mL every 6 hours by oral route. 05/06 completed Not Available Not Available Not Available carvedilo l 25 mg tablet TAKE 1 TABLET BY MOUTH TWICE A DAY active Not Available Not Available No t Available doxycycli ne hyclate 100 mg capsule twice a day 02/16 completed Not Available Not Available Not Available trazodone 50 mg tablet TAKE 1/2 - 1 TABLET BY MOUTH AT BEDTIME NEEDED FOR INSOMNIA 08/08 completed Not Available Not Available Not Available ibuprofen 800 mg tablet three times a day Use PRN for pain 04/24 completed Sandyi joshua; Days: 20; three times a day; Issued Via: Electron ic ;PRN Flag:No; Disckayei nuedByUs er: SBnargis devine N ; Status Descript ion: Tomi gaona Not Available Not Available Not Available nifedipin e ER 90 mg tablet,ex tended release TAKE 1 TABLET BY MOUTH EVERY DAY 02/28 completed Not Available Not Available Not Available clarithro mycin 500 mg tablet TAKE 1 TABLET BY MOUTH TWICE A DAY WITH MEALS FOR 14 DAYS 08/18 completed Not Available Not Available Not Available doxycycli ne hyclate 50 mg capsule TAKE 1 CAPSULE BY MOUTH TWICE A DAY FOR 7 DAYS 08/18 completed Not Available Not Available Not Available Viagra 50 mg tablet 04/03 completed Not Available Not Available Not Available Zithromax Z-Dl 250 mg tablet TAKE 2 TABLETS (500 MG) BY ORAL ROUTE ONCE DAILY FOR 1 DAY THEN 1 TABLET (250 MG) BY ORAL ROUTE ONCE DAILY FOR 4 DAYS 05/06 completed Not Available Not Available Not Available amlodipin e 5 mg tablet TAKE 1 TABLET BY MOUTH EVERY DAY 08/18 completed Not Available Not Available Not Available mefloquin e 250 mg tablet Start 1 tablet once a week starting 2 weeks before the travel and then continue for 4 weeks after returnin g back to [facility]. 2023 active Not Available Not Available Not Avai lable ciproflox acin 500 mg tablet 11/01 completed Not Available Not Available Not Available sulfameth oxazole 800 mg-trimet hoprim 160 mg tablet TAKE 1 TABLET BY MOUTH EVERY 12 HOURS 06/01 completed Not Available Not Available Not Available omeprazol e 40 mg capsule,d elayed release TAKE 1 CAPSULE BY MOUTH EVERY DAY active Not Available Not Available No t Available tramadol 50 mg tablet Take 1 tablet every 6 hours by oral route as needed. 02/28 completed Not Available Not Available Not Available amoxicill in 500 mg tablet TAKE 2 TABLETS BY MOUTH TWICE A DAY FOR 14 DAYS 08/18 completed Not Available Not Available Not Available terbinafi ne HCl 250 mg tablet 12/11 completed Not Available Not Available Not Available amoxicill in 875 mg tablet TAKE 1 TABLET BY MOUTH TWICE A DAY FOR 7 DAYS 08/18 completed Not Available Not Available Not Available prednisol one acetate 1 % eye drops,charlene pension INSTILL 1 DROP INTO BOTH EYES BY OPHTHALM IC ROUTE4 TIMES A DAY 10/01 completed Not Available Not Available Not Available mefenamic acid 250 mg capsule Take by oral route for 30 days. 10/25 completed Not Available Not Available Not Available amlodipin e 10 mg tablet TAKE 1 TABLET BY MOUTH EVERY DAY 08/18 completed Not Available Not Available Not Available hydrocodo ne 7.5 mg-acetam inophen 325 mg tablet 07/19 completed Not Available Not Available Not Available polymyxin B sulfate 10,000 unit-trim ethoprim 1 mg/mL eye drops 07/19 completed Not Available Not Available Not Available diltiazem CD 120 mg capsule,e xtended release 24 hr TAKE 1 CAPSULE BY MOUTH EVERY DAY active Not Available Not Available No t Available ceftriaxo ne 500 mg solution for injection Take 1.3 mg by injectio n route. 08/18 completed Not Available Not Available Not Available hydrochlo rothiazid e 25 mg tablet TAKE 1 TABLET(S ) EVERY DAY BY ORAL ROUTE. 12/11 completed Not Available Not Available Not Available Dyazide 37.5 mg-25 mg capsule once a day 1 tab daily 05/06 completed Not Available Not Available Not Available levofloxa natalya 500 mg tablet TAKE ONE TABLET DAILY STARTING 1 DAY PRIOR TO PROCEDUR E FOR 3 DAYS UNLESS OTHERWIS E DIRECTED 08/18 completed Not Available Not Available Not Available methylpre dnisolone 4 mg tablets in a dose pack TAKE 6 TABLETS ON DAY 1 DIRECTED ON PACKAGE AND DECREASE BY 1 TAB EACH DAY FOR A TOTAL OF 6 DAYS 10/20 completed Not Available Not Available Not Available ketoconaz ole 2 % topical cream Apply by topical route for 30 days. 12/11 completed Not Available Not Available Not Available Tussionex [place] ic ER 10 mg-8 mg/5 mL suspensio n,extende d release Use PRN for cough/co ngestion 06/11 completed Disconti nued; Days: 7; 1 teaspoon by mouth every 12 hours; Issued Via: Print ;PRN Flag:No; Disconti nuedByUs er: SBhendwa sybil N ; Status Descript ion: Tomi gaona Not Available Not Available Not Available naproxen 500 mg tablet 11/01 completed Not Available Not Available Not Available diazepam 5 mg tablet Use before surgical procedur e as needed. Do not exceed 2 tablets a day. 07/19 completed Not Available Not Available Not Available amoxicill in 875 mg-potass ium clavulana te 125 mg tablet Take 1 tablet every 12 hours by oral route for 7 days. 04/03 completed Not Available Not Available Not Available valsartan 160 mg-hydroc hlorothia zide 25 mg tablet TAKE 1 TABLET BY MOUTH EVERY DAY 03/20 completed Not Available Not Available Not Available cyclobenz aprine 5 mg tablet TAKE 1 TABLET 3 TIMES A DAY BY ORAL ROUTE NEEDED. 02/16 completed Not Available Not Available Not Available olmesarta n 20 mg-hydroc hlorothia zide 12.5 mg tablet Take 1 tablet every day by oral route. 09/06 completed Not Available Not Available Not Available rosuvasta tin 5 mg tablet TAKE 1 TABLET BY MOUTH EVERY DAY active Not Available Not Available No t Available alfuzosin ER 10 mg tablet,ex tended release 24 hr TAKE ONE TABLET BY MOUTH AT DINNER OR BEDTIME DIRECTED 10/20 completed Not Available Not Available Not Available tadalafil 20 mg tablet 1 tab q 72 hours prn active Not Available Not Available No t Available valsartan 320 mg-hydroc hlorothia zide 25 mg tablet TAKE 1 TABLET BY MOUTH EVERY DAY active Not Available Not Available No t Available Chantix 1 mg tablet TAKE 1 TABLET BY MOUTH TWICE A DAY 11/12 completed Not Available Not Available Not Available butalbita l-acetami nophen-ca ffeine 50 mg-300 mg-40 mg capsule TAKE 1 CAPSULE BY MOUTH EVERY 4 HOURS NEEDED FOR PAIN 02/16 completed Not Available Not Available Not Available Chantix Starting Month Box 0.5 mg (11)-1 mg (42) tablets in dose pack As directed active Not Available Not Available No t Available Edarbyclo r 40 mg-25 mg tablet Take 1 tablet every day by oral route. 05/19 completed Not Available Not Available Not Available Combivent Respimat 20 mcg-100 mcg/actua tion solution for inhalatio n INHALE 1 PUFF 4 TIMES A DAY BY INHALATI ON ROUTE. active Not Available Not Available No t Available Lidocaine Pain Relief 4 % topical patch APPLY PATCH THREE TIMES A DAY NEEDED 08/08 completed Not Available Not Available Not Available EC-Naprox en 500 mg tablet,de layed release TAKE 1 TABLET TWICE A DAY BY ORAL ROUTE NEEDED. 01/26 completed Not Available Not Available Not Available Tiadylt ER 120 mg capsule,e xtended release TAKE 1 CAPSULE BY MOUTH EVERY DAY 01/26 completed Not Available Not Available Not Available Tiadylt ER 240 mg capsule,e xtended release TAKE 1 CAPSULE BY MOUTH EVERY DAY 08/18 completed Not Available Not Available Not Available Nurtec ODT 75 mg disintegr ating tablet 02/16 completed Not Available Not Available Not Available Vitals Date Recorded Body height Provider Name an d Address Organization Details Last Updated DateTime 04/21/2023 185.42 cm [employer] 04/21/2023 08:44:27 Date Recorded Body mass index (BMI) Body weight Provider Name and Address Organization Details Last Updated DateTime 04/21/2023 26.8 kg/m2 99032.69 g [employer] 04/21/2023 08:44:38 Date Recorded Body temperature Provider Name a nd Address Organization Details Last Updated DateTime 04/21/2023 93.2 [degF] [employer] 04/21/2023 08:48:44 Date Recorded Oxygen saturation Oxygen saturation in Arterial blood by Pulse oximetry Provider Name and Address Organization Details Last Updated DateTime 04/21/2023 96 % 96 % [employer] 04/21/2023 08:48:56 Date Recorded Respiratory rate Provider Name a nd Address Organization Details Last Updated DateTime 04/21/2023 15 /min [employer] 04/21/2023 08:48:59 Date Recorded Heart rate Provider Name an d Address Organization Details Last Updated DateTime 04/21/2023 66 /min Doris Daniel [place] - [employer] [place] [employer] 04/21/2023 08:49:01 Date Recorded Body height Provider Name an d Address Organization Details Last Updated DateTime 08/19/2023 185.42 cm Doris Daniel [place] - [employer] [place] [employer] 08/19/2023 09:03:06 Date Recorded Body mass index (BMI) Body weight Provider Name and Address Organization Details Last Updated DateTime 08/19/2023 26.6 kg/m2 09096.22 g Doris Sanchez [employer] [place] [facility] [place] [employer] 08/19/2023 09:03:12 Date Recorded Body temperature Provider Name a nd Address Organization Details Last Updated DateTime 08/19/2023 96.8 [degF] Doris Daniel [place] - [employer] [place] [employer] 08/19/2023 09:04:32 Date Recorded Oxygen saturation Oxygen saturation in Arterial blood by Pulse oximetry Provider Name and Address Organization Details Last Updated DateTime 08/19/2023 99 % 99 % Doris Sanchez [place] - [employer] [place] 08/19/2023 09:05:40 Date Recorded Heart rate Provider Name an d Address Organization Details Last Updated DateTime 08/19/2023 60 /min Doris Daniel [place] - [employer] [place] [employer] 08/19/2023 09:05:42 Date Recorded Respiratory rate Provider Name a nd Address Organization Details Last Updated DateTime 08/19/2023 15 /min Doris Daniel [place] - [employer] [employer] 08/19/2023 09:05:44 Date Recorded Body height Provider Name an d Address Organization Details Last Updated DateTime 10/26/2023 185.42 cm Doris Daniel [place] - [employer] [place] [employer] 10/26/2023 15:10:35 Date Recorded Body temperature Provider Name a nd Address Organization Details Last Updated DateTime 10/26/2023 97.2 [degF] Doris Daniel [place] - [employer] [place] [employer] 10/26/2023 15:12:46 Date Recorded Respiratory rate Provider Name a nd Address Organization Details Last Updated DateTime 10/26/2023 15 /min Doris Daniel [place] - [employer] [place] [employer] 10/26/2023 15:20:47 Date Recorded Body mass index (BMI) Provider Name and Address Organization Details Last Updated DateTime 10/26/2023 25.1 kg/m2 Doris Dianwoba - [email or web address] [employer] 10/26/2023 15:20:50 Date Recorded Body weight Provider Name an d Address Organization Details Last Updated DateTime 10/26/2023 70633.99 g Doris Dianwoba - [email or web address] [employer] 10/26/2023 15:20:51 Date Recorded Oxygen saturation Oxygen saturation in Arterial blood by Pulse oximetry Provider Name and Address Organization Details Last Updated DateTime 10/26/2023 99 % 99 % [employer] [employer] 10/26/2023 15:22:48 Date Recorded Heart rate Provider Name an d Address Organization Details Last Updated DateTime 10/26/2023 76 /min [facility] [employer] - [email or web address] 10/26/2023 15:22:49 Date Recorded Body height Provider Name an d Address Organization Details Last Updated DateTime 11/18/2023 185.42 cm [facility] [employer] - [email or web address] [employer] 11/18/2023 09:23:02 Date Recorded Body temperature Provider Name a nd Address Organization Details Last Updated DateTime 11/18/2023 98.2 [degF] Doris Dianwoba - [email or web address] [employer] 11/18/2023 09:26:15 Date Recorded Oxygen saturation Oxygen saturation in Arterial blood by Pulse oximetry Provider Name and Address Organization Details Last Updated DateTime 11/18/2023 97 % 97 % Doris [employer] [place] 11/18/2023 09:26:17 Date Recorded Respiratory rate Provider Name a nd Address Organization Details Last Updated DateTime 11/18/2023 15 /min Doris Dianwoba - [email or web address] [employer] 11/18/2023 09:26:19 Date Recorded Heart rate Provider Name an d Address Organization Details Last Updated DateTime 11/18/2023 64 /min Doris [employer] - [email or web address] [employer] 11/18/2023 09:26:21 Date Recorded Body height Provider Name an d Address Organization Details Last Updated DateTime 02/29/2024 185.42 cm Doris Dianwoba - [email or web address] [employer] 02/29/2024 14:09:24 Date Recorded Systolic blood pressure Diastolic blood pressure Provider Name and Address Organization Details Last Updated DateTime 04/21/2023 120 mm[Hg] 74 mm[Hg] Doris Sanchez [facility] 04/21/2023 08:48:52 Date Recorded Systolic blood pressure Diastolic blood pressure Provider Name and Address Organization Details Last Updated DateTime 08/19/2023 120 mm[Hg] 71 mm[Hg] Doris Daniel [place] 08/19/2023 09:05:47 Date Recorded Systolic blood pressure Diastolic blood pressure Provider Name and Address Organization Details Last Updated DateTime 10/26/2023 134 mm[Hg] 73 mm[Hg] Doris [employer] 10/26/2023 15:22:46 Date Recorded Systolic blood pressure Diastolic blood pressure Provider Name and Address Organization Details Last Updated DateTime 11/18/2023 133 mm[Hg] 72 mm[Hg] Doris [employer] 11/18/2023 09:26:27 Social History Question Answer Notes LastModified by Organizat ion Details LastModified Time Tobacco Smoking Status Former Smoker Vandana cedeno Em[place] 11/12/2020 09:53:44 Do You Have An Advance Directive? No Information not available 02/16/2023 What Is Your Level Of Alcohol Consumption? None Information not available 08/08/2015 Are You Blind Or Do You Have Difficulty Seeing? No Information not available 11/12/2020 What Is Your Level Of Caffeine Consumption? Occasional One Cup Of Coffee A Morning [email or web address] Information not available 09/07/2019 How Much Tobacco Do You Chew? None [email or web address] Information not available 12/12/2019 In The 14 Days Before Symptom Onset, Have You Had Close Contact With A Laboratory-confir med COVID-19 While That Case Was Ill? No [email or web address] Information not available 11/12/2020 In The 14 Days Before Symptom Onset, Have You Had Close Contact With A Person Who Is Under Investigation For COVID-19 While That Person Was Ill? No [email or web address] Information not available 11/12/2020 Have You Been To An Area Known To Be High Risk For COVID-19? No [email or web address] Information not available 11/12/2020 Are You Deaf Or Do You Have Serious Difficulty Hearing? No [email or web address] Information not available 11/12/2020 What Type Of Diet Are You Following? REGULAR Information not available 08/08/2015 Have You Processed Blood Or Body Fluids From An Ebola Virus Disease Patient Without Appropriate PPE? No [email or web address] Information not available 11/12/2020 Do You Reside In Or Have You Traveled To An Area Where Ebola Virus Transmission Is Active? No [email or web address] Information not available 11/12/2020 Do You Or Have You Ever Used E-cigarettes Or Vape? Never Used Electronic Cigarettes [email or web address] Information not available 12/22/2018 What Is The Highest Grade Or Level Of School You Have Completed Or The Highest Degree You Have Received? [id number] Information not available 02/16/2023 Which Of Your Hands Is Dominant? Right Information not available 03/10/2021 Is Your Current Relationship Stressful? Yes Information not available 02/16/2023 What Was The Date Of Your Most Recent Tobacco Screening? 02/29/2024 [email or web address] Information not available 02/29/2024 How Many Children Do You Have? 2 Information not available 02/16/2023 What Is Your Relationship Status? Information not available 02/16/2023 Seat Belts Used Routinely Yes Information not available 08/08/2015 Smoke Alarm In Home Yes Information not available 08/08/2015 At What Age Did You Start Smoking Tobacco? 18 Information not available 11/13/2022 Do You Or Have You Ever Used Smokeless Tobacco? Never Used Smokeless Tobacco [email or web address] Information not available 12/22/2018 How Much Tobacco Do You Smoke? 0.25 PPD Information not available 02/15/2019 Do You Use Any Illicit Or Recreational Drugs? No Information not available 03/10/2021 Has Tobacco Cessation Counseling Been Provided? No Information not available 03/10/2021 How Many Years Have You Smoked Tobacco? 10 Information not available 02/15/2019 Do You Or Have You Ever Used Any Other Forms Of Tobacco Or Nicotine? No Information not available 03/10/2021 Sex: Unknown Functional Status Question Answer Note LastModified by Organizat ion Details LastModified Time Do you have difficulty walking or climbing stairs? No [email or web address] Information not available 11/12/2020 Do you have transportation difficulties? No [email or web address] Information not available 11/12/2020 Are you able to walk? [email or web address] Information not available 03/10/2021 Do you have difficulty doing errands alone? No Information not available 11/12/2020 Are you able to care for yourself? Yes [email or web address] Information n ot available 11/12/2020 Do you have difficulty dressing or bathing? No Information not available 11/12/2020 What is your exercise level? Occasional Information not available 08/08/2015 Mental Status Question Answer Note LastModified by Organization D etails LastModified Time Do you have difficulty concentrating, remembering or making decisions? No Information no t available 11/12/2020 Family History Relationship Description Onset Age of this Age Resolved Age Notes LastModified by Organization Details LastModified Time Brother Hypertensive disorder Not available 02/28 08:48:40 Brother Intracranial aneurysm Not available 02/28 08:49:14 Medical History Condition Response High Blood Pressure Y High Cholesterol Y Headaches Y Immunizations Vaccine Type Date Status Note Provider Nam e and Address Organization Details Recorded Time Influenza, MDCK, quadrivalent, preservative 9 completed Not Available [facility] 04/08/2019 04:34:45 Influenza, MDCK, quadrivalent, PF 1 completed Molly cedeno Emida 03/20/2021 16:30:23 Influenza, split virus, trivalent, PF 7 completed Not Available [facility] 04/08/2019 04:32:11 Influenza, split virus, quadrivalent, PF 2 completed YAMILE JONES MD [address] [place] [address], [phone], [place] 01/26/2022 10:21:29 COVID-19, mRNA, LNP-S, PF, 30 mcg/0.3 mL dose 1 completed Not Available [facility] 11/18/2022 03:20:50 COVID-19, mRNA, LNP-S, PF, 30 mcg/0.3 mL dose 1 completed Not Available [facility] 11/18/2022 03:20:50 Influenza, split virus, quadrivalent, PF 3 completed YAMILE JONES MD [address] [place] [address], [phone], [facility] [employer] 02/16/2023 09:04:19 COVID-19, mRNA, LNP-S, PF, 30 mcg/0.3 mL dose 1 completed Not Available [facility] 11/18/2022 03:20:50 Influenza, split virus, trivalent, preservative 7 completed Not Available [facility] 04/08/2019 04:33:02 Influenza, MDCK, quadrivalent, preservative 8 completed Not Available [facility] 04/08/2019 04:33:35 Past Encounters Encounter ID Performer Location Encounter Start Date Encounter Closed Date Diagnosis/Indication Diagnosis SNOMED-CT Code Diagnosis ICD10 Code Diagnosis Note [id number] [address] [place] [address] [place] [address] 04/24/2015 00:00:00 [id number] [place] [address] 01/17/2015 00:00:00 [id number] [place] [address] 06/20/2014 00:00:00 [id number] Ni [place] [address] [place] [address] 06/11/2014 00:00:00 [id number] Ni [place] [address] [place] [address] 02/20/2014 00:00:00 [id number] Ni [place] [address] [address] 01/24/2014 00:00:00 [id number] [facility] [address] [facility] [address] [place] [id number] 08/08/2015 14:50:04 08/08/2015 15:19:47 Acute sinusitis 61847138 J01.90 Adult heal th examination 111855878 Z00.01 Essential hypertension 03196096 I10 [id number] [facility]y [facility] [address] 1 [place] [address] 08/27/2015 10:46:20 08/27/2015 11:39:55 Essential hypertension 15221919 I10 Leukocytosis 793374387 D 72.829 [id number] Mary Hampton [facility] [address] 1 [place] [address] 10/03/2015 09:42:06 10/03/2015 10:20:03 Leukocytosis 938710015 D72.829 Derangemen t of meniscus 615981168 M23.209 [id number] YAMILE JONES MD [facility] [place] [id number] 12/20/2015 11:27:58 12/20/2015 12:17:43 Acute pharyngitis 043384653 J02.9 Hypertensive disorder 38 484455 I10 Corns and callus 1767989 00 L84 [id number] YAMILE JONES MD [facility] [address] [address] 02/28/2016 11:20:26 02/28/2016 12:29:44 Upper respiratory infection 53749831 J06.9 [id number] YAMILE JONES MD [facility] [address] 1 [place] [address] 04/03/2016 08:15:31 04/03/2016 09:56:39 Adult health examination 310247210 Z00.01 Essential hypertension 06781637 I10 Nicotine dependence 5629 4008 F17.200 Only social smoker, not daily smoker Administra tion of influenza vaccine 47775624 Z23 [id number] YAMILE JONES MD [facility] [address] [address] 07/20/2016 08:50:29 07/20/2016 12:03:00 Essential hypertension 99588775 I10 Left sided abdominal pain 500344551 R10.9 Resolved Strain of tendon of medial thigh muscle 280629246 S76.812D Resolved. Nicotine dependence 5629 4008 F17.200 Only social smoker, not daily smoker Primary er ectile dysfunction 652713393 N52.9 Seen by Urology, continue zhens prn. [id number] YAMILE JONES MD [facility] [address] [facility] 1 [facility] [place] [address] 12/31/2016 08:22:08 12/31/2016 08:50:35 Administration of influenza vaccine 15204736 Z23 Essential hypertension 68623008 I10 Acute uppe r respiratory infection 57728274 J06.9 [id number] YAMILE OJNES MD [facility] [address] BRUSH 1 [facility] [place] [address] 05/06/2017 11:22:56 05/06/2017 13:00:43 Atypical chest pain 335830170 R07.89 Pure hypercholesterolemia 191365315 E78.00 LDL 106, HDL 28, 10 year CV risk 11.2 %. Discussed wit patient about statins, wants life style modificati ons first. Essential hypertension 20043107 I10 Suboptimal BP control Tobacco de pendence in remission 406426953 F17.201 [id number] YAMILE JONES MD [facility] [address] BRUSH 1 [place] [address] 05/13/2017 09:06:00 05/13/2017 09:47:22 Acute peptic ulcer 378823800 K27.3 Call or go to ER if pain gets worse. Will consider EGD if pain persists. Adverse re action to drug 19047194 T45.95XA Stop edarbyclor . Go back on amlodipine Atypical chest pain 1025 27990 R07.89 Resolved, due to see cardiology , considerin g risk factors, consider tread mill stress test. Pain most likely from peptic ulcer. [id number] YAMILE JONES MD [facility] [address] [place] [address] 05/19/2017 10:04:53 05/19/2017 11:21:34 Essential hypertension 35607822 I10 BP much better controlled , target SBP less 130. Chest pain 88204289 R07. 9 Resolved . FU with cardiology , consider EST Pure hypercholesterolemia 211141556 E78.00 LDL 106, HDL 28, 10 year CV risk 11.2 %. Discussed with patient about statins, wants life style modificati ons first. [id number] YAMILE JONES MD [facility] [address]NA [facility] [place] [address] 07/02/2017 08:57:23 07/02/2017 09:16:45 Essential hypertension 25353834 I10 BP well controlled . Continue current meds. Pure hypercholesterolemia 861880725 E78.00 LDL 118, HDL 28. 10 year CV risk 7.5 %. Discussed with patient about statins. Wants to try life style modificati ons first. Will repeat lipids in 4 months. Patient ad vised about anti-malaria prophylaxis 180246632 Z71.89 Going to [place]. [id number] YAMILE JONES MD [facility] [address] HANNA [address] [address] 11/01/2017 08:57:36 11/01/2017 09:35:51 Essential hypertension 67551293 I10 BP well controlled . Continue current meds. Pure hypercholesterolemia 780180146 E78.00 His last LDL was 118. Ten-year cardiovasc ular risk was under 10%. He only has 1 risk factor for coronary disease. Continue with diet and lifestyle modificati on. Check lipids in 2 months. Family his tory of aneurysm of blood vessel of brain 4967176693 5566460 Z82.49 [id number] YAMILE JONES MD [facility] [address]NA [facility] [place] [address] 11/18/2017 09:19:48 11/18/2017 09:59:00 Contusion of rib 020349512 S20.20XA Foot pain 37840034 M79.6 71 Primary gout 06241529 M1 0.00 Cerebral arteriovenous malformation 822656532 Q28.2 [id number] YAMILE JONES MD [facility] [address] [address] 12/02/2017 09:53:12 12/02/2017 11:47:09 Cerebral arteriovenous malformation 097120022 Q28.2 Is not symptomati c. We will continue to follow. Will refer to neurosurge ry for evaluation . Foot pain 16129852 M79.6 71 Resolved. Patient ad vised about anti-malaria prophylaxis 945218800 Z71.89 Going to [place]. [id number] YAMILE JONES MD [facility] [address] [address] 02/28/2018 08:26:01 02/28/2018 08:53:50 Administration of influenza vaccine 49385357 Z23 Essential hypertension 50290873 I10 BP well controlled . Continue current meds. Cerebral arteriovenous malformation 180056714 Q28.2 Is not symptomati c. We will continue to follow. Will refer to neurosurge ry for evaluation . Cigarette smoker 9385067 7 F17.210 Smokes 5-7 cigarettes a day. Not ready to quit yet. Adult [facility] th examination 133157886 Z00.00 Depression screening 171 894933 Z13.31 PHQ score is 0 Body mass index 25-29 - overweight 505303783 Z68.25 [id number] YAMILE JONES MD [facility] [address] [address] 07/19/2018 08:29:55 07/19/2018 09:00:10 Acquired arteriovenous malformation 6845957815 108 I99.8 Essential hypertension 79178306 I10 BP well controlled . Continue current meds. Light ciga rette smoker (1-9 cigs/day) 039455227 F17.210 Once again advised patient to stop smoking. [id number] YAMILE JONES MD [facility] [address] [address] 12/22/2018 16:30:09 12/22/2018 17:07:11 [id number] YAMILE JONES MD [facility] [address] [address] 12/27/2018 08:54:20 12/27/2018 09:22:20 Epigastric pain 32665052 R10.13 Most likely secondary to gastric ulcer. Pancreatit is is extremely unlikely. Cerebral arteriovenous malformation 796236640 Q28.2 Due to follow-up with neurosurge ry at [facility] Essential hypertension 25700421 I10 BP well controlled . Continue current meds. Adult heal th examination 197707088 Z00.00 Administra tion of influenza vaccine 68832863 Z23 [id number] YAMILE JONES MD [facility] [address] [address] 02/15/2019 09:38:47 02/15/2019 10:45:10 Essential hypertension 82831391 I10 BP well controlled . Continue current meds. Cerebral arteriovenous malformation 877025530 Q28.2 Follow-up with neurosurge ry at [facility]. Planned for CT angiogram cerebral arteries. Acute peptic ulcer 1999 K27.3 Advised patient to take omeprazole daily for 3 months. After that he can try and stop it. Prediabetes 214963944 R7 3.03 Will repeat hemoglobin A1c in 4 months. [id number] YAMILE JONES MD [facility] [address] [place] [employer] [address] [address] 03/06/2019 10:04:14 03/06/2019 11:35:20 Cerebral arteriovenous malformation 433819114 Q28.2 Patient had recent MRA at [place]. States that he will be gong back for embolizati on on 04/05. Prediabetes 635396400 R7 3.03 Last HgbA1C in 12/2018 was 5.9%. Essential hypertension 62578315 I10 BP well controlled . Continue current meds. Gastroesop hageal reflux disease 922575772 K21.9 Controlled . Continue with PPI. Ganglion of wrist 20280621 009 M67.439 Pain likely from ganglion cyst. Will refer patient to orthopedic to get cortisone shot. Patient ad vised about anti-malaria prophylaxis 693366007 Z71.89 Going to [place]. [id number] YAMILE JONES MD [facility] [address] [place] H[place]NA [place] [address] [place] [address] 04/25/2019 09:56:17 04/25/2019 11:17:15 Cerebral arteriovenous malformation 599044807 Q28.2 Follow-up with neurosurge ry for elective surgical correction of AV malformati on and fistula. Paroxysmal atrial fibrillation 627866503 I48.0 CHADVascsc ore is 1. Heart rate is well controlled . He is completely asymptomat ic. There is a relative complicati on for antiplatel et agents because of history of AV malformati ons. Follow-up with cardiology . Essential hypertension 89834337 I10 Cardiologi [address] felt amlodipine to diltiazem which is also helping with control of heart rate. Continue with the same. Situationa l panic attack 961863116 F41.0 [id number] YAMILE JONES MD [facility] [address] [address] 07/20/2019 12:58:01 07/20/2019 16:52:06 Essential hypertension 90745817 I10 Cerebral arteriovenous malformation 052491851 Q28.2 Paroxysmal atrial fibrillation 177429450 I48.0 CHADVascsc oreis 1. Followed by cardiology . Negative contraindi cation for anticoagul ation because of history of AV malformati ons in the brain. [id number] YAMILE JONES MD [facility] [address] [address] 09/07/2019 08:17:08 09/07/2019 11:36:46 Adult health examination 098701406 Z00.00 Prediabetes 111864149 R7 3.03 Last HgbA1C in 12/2018 was 5.9%. Body mass index 25-29 - overweight 316243837 Z68.26 Cerebral arteriovenous malformation 441273634 Q28.2 Planned for radiation. Essential hypertension 60858312 I10 Blood pressures well controlled now. Previously high readings were possibly secondary to stress. Continue with diltiazem and hydrochlor othiazide. No need to start olmesartan /hydrochlo rothiazide . Light ciga rette smoker (1-9 cigs/day) 836110264 F17.210 He is only smoking 2 to 3 cigarettes a day. Once again advised him to quit smoking altogether . Paroxysmal atrial fibrillation 950345899 I48.0 CHADVascsc oreis1. Followed by cardiology . Relative contraindi cation for anticoagul ation because of history of AV malformati ons in the brain. Heart rate well controlled with diltiazem. Hepatitis C screening 41 3355781 Z11.59 Screening for malignant neoplasm of prostate 221526393 Z12.5 Depression screening 171 634052 Z13.31 PHQ score is 0 Screening for malignant neoplasm of colon 658243949 Z12.11 [id number] YAMILE JONES MD [facility] [address] [address] 11/07/2019 10:46:15 11/07/2019 12:07:45 Essential hypertension 55412888 I10 BP was 140/90. At home SBP 135-150s.. Patient is no longer stressed. Continue diltiazem, and start valsartan- HTZ. Stop amlodipine , was d/gilmer. Paroxysmal atrial fibrillation 603586771 I48.0 CHADVascsc oreis1. Followed by cardiology . Relative contraindi cation for anticoagul ation because of history of AV malformati ons in the brain. Heart rate well controlled with diltiazem. Cerebral arteriovenous malformation 022454264 Q28.2 Last MRI was 10/2018. No new headaches, sensitivit y to light/soun d, or changes in vision. Repeat MRI. f/u with neuro. Prediabetes 354589298 R7 3.03 Last HgbA1C in 12/2018 was 5.9%. [id number] YAMILE JONES MD [facility] [address] [address] 12/12/2019 08:30:48 12/12/2019 11:41:37 Body mass index 25-29 - overweight 814938930 Z68.26 Cerebral arteriovenous malformation 857876651 Q28.2 Status post radiation treatment. Followed by neurosurge ry at [facility]. Essential hypertension 61694382 I10 BP is better controlled at home, between SBP 130-140; Continue diltiazem, and valsartan- HTZ. Stop amlodipine , was d/gilmer. Prediabetes 741460735 R7 3.03 Last HgbA1C in 12/2018 was 5.9%. patient has not followed up on labs. will repeat. Screening for malignant neoplasm of prostate 616552612 Z12.5 [id number] YAMILE JONES MD [facility] [address] [address] 06/24/2020 12:57:35 06/24/2020 13:31:00 Essential hypertension 65168583 I10 Blood pressure well controlled . Today's readings are 128/80. Continue with the valsartan/ hydrochlor othiazide. Paroxysmal atrial fibrillation 767820851 I48.0 CHADVascsc oreis1. Continues to be normal sinus rhythm. Heart rate well controlled . Continue with diltiazem CD. Difficult indication for anticoagul ation because of history of AVM in the brain. Cerebral arteriovenous malformation 395645612 Q28.2 Status post radiation treatment. Followed by neurosurge ry at [facility]. Patient ad vised about anti-malaria prophylaxis 334714708 Z71.89 Going to [place]. Prediabetes 395857788 R7 3.03 Hemoglobin A1chas gone up to 6.0. We will continue to monitor. Viral screening 37411023 4 Z11.52 [id number] YAMILE JONES MD [facility] [address] [address] 07/29/2020 14:52:28 07/29/2020 15:53:59 Syncope and collapse 099526976 R55 Cerebral arteriovenous malformation 300413811 Q28.2 Status post radiation treatment. Followed by neurosurge ry at [facility]. Essential hypertension 99826257 I10 Blood pressure well controlled . Today's readings are 128/80. Continue with the valsartan/ hydrochlor othiazide. Paroxysmal atrial fibrillation 351978028 I48.0 CHADVascsc oreis1. Rule out cardiac dysrhythmi a during syncopal episode. Will put him on 14 days Holter monitor. If negative he may need loop recorder. We will also refer to cardiology . Prediabetes 236353308 R7 3.03 Family his tory of aneurysm of abdominal aorta 373683753 Z82.49 Intermitte nt claudication 83743030 I73.9 Contusion of lower back 886904568 S30.0XXA Contusion of thoracic spine 319996876 S24.159A Light ciga rette smoker (1-9 cigs/day) 935637900 F17.210 He is only smoking 2 to 3 cigarettes a day. Once again advised him to quit smoking altogether . [id number] YAMILE JONES MD [facility] [address] [address] 09/09/2020 15:25:26 09/09/2020 16:10:58 Leukocytosis 893880758 D72.829 Most likely reactive. Will repeat CBC in 3 months. Prediabetes 996958688 R7 3.03 Hemoglobin [id number] y elevated at 5.8. Discussed with him about diet and lifestyle modificati on. We will repeat labs in 3 months. Pure hypercholesterolemia 236229561 E78.00 Total cholestero l 185, HDL 27, LDL 142. 10-year cardiovasc ular risk is 19.2%. However, he is only a very light smoker smoking 1 to 2 cigarettes a day. If he was not smoking his cardiovasc ular risk would be 11%. Discussed with him about use of statins. He would rather modify his cardiovasc ular risk factors including stopping smoking and watching his diet. We will recheck lipids in 4 months. Syncope and collapse 309 527477 R55 All the work-up including carotid Doppler, echocardio gram and lab work is normal. Most likely vasovagal. Normal Holter as well. Will defer to cardiology if further work-up is needed. Cerebral arteriovenous malformation 909707469 Q28.2 Repeat MRI did not show any change of small AV malformati on which was irradiated . Due to follow-up with neurosurge ry at [place]. Paroxysmal atrial fibrillation 618309291 I48.0 Holter monitor did show very short runs of atrial fibrillati on. Will refer to cardiology to see if there is any indication for loop monitor. Light ciga rette smoker (1-9 cigs/day) 253600022 F17.210 He is only smoking 2 to 3 cigarettes a day. Once again advised him to quit smoking altogether . [id number] MIGUELITO REAL MD [facility] [address] [address] 10/01/2020 09:33:35 10/01/2020 10:14:04 Cerebral arteriovenous malformation 432165183 Q28.2 Essential hypertension 10481805 I10 Paroxysmal atrial fibrillation 186424151 I48.0 [id number] YAMILE JONES MD [facility] [address] [address] 11/12/2020 09:41:53 11/12/2020 10:24:02 Adult health examination 346388606 Z00.00 Depression screening 171 522535 Z13.31 PHQ score is 0 Essential hypertension 34962844 I10 Blood pressure well controlled on valsartan/ hydrochlor othiazide. Today's readings are 129/77. Paroxysmal atrial fibrillation 022960793 I48.0 Holter monitor did show very short runs of atrial fibrillati on. He was seen by cardiologi who recommende d continuati on of calcium channel blockers. No indication for anticoagul ation. [id number] Sc score is 1. Prediabetes 594518249 R7 3.03 Hemoglobin J0hevnprfs y elevated at 5.8. Discussed with him about diet and lifestyle modificati on. We will repeat labs in 3 months. Pure hypercholesterolemia 627543314 E78.00 Total cholestero l 185, HDL 27, LDL 142. 10-year cardiovasc ular risk is 19.2%. However, he is only a very light smoker smoking 1 to 2 cigarettes a day. If he was not smoking his cardiovasc ular risk would be 11%. Light ciga rette smoker (1-9 cigs/day) 903898069 F17.210 He was taking Chantix but he was advised to stop by the pharmacy as Chantix is on recall. Tobacco de pendence in remission 484264692 F17.201 Prior to this he was only smoking 2 to 3 cigarettes a day. Now he stopped smoking altogether . Screening for malignant neoplasm of colon 067248901 Z12.11 Screening for malignant neoplasm of prostate 568769149 Z12.5 Body mass index 20-24 - normal 075100947 Z68.24 Hepatitis C screening 41 7359254 Z11.59 [id number] YAMILE JONES MD [facility] [address] [address] 03/10/2021 15:04:15 03/10/2021 15:29:43 Insomnia 469308213 G47.00 Essential hypertension 06914547 I10 Blood pressure since running high most likely secondary to stress. Once again advised to work on his stress. Will increase pulse to 320 mg daily along with hydrochlor othiazide 25 mg. Paroxysmal atrial fibrillation 133379438 I48.0 Doing well on diltiazem. Continue the same. Not a candidate for anticoagul ation because of very low [id number] Sc score of 1. Prediabetes 454386557 R7 3.03 Hemoglobin A1c has gone up to 6.0. Possibly stress related. Once again discussed with him about diet and lifestyle modificati on. We will continue to monitor. Pure hypercholesterolemia 592242095 E78.00 Lipid panel dated 02/12/2021 : Total cholestero l 176, triglyceri evans 84, HDL 28, LDL 132. 10-year cardiovasc ular risk is 10.1%. He is not keen on starting a statins as yet. We will continue to monitor. History of polyp of colon 556630612 Z86.010 Status post colonoscop y January 2021. Benign polyps on colonoscop y. For repeat colonoscop y in 2023. Primary er ectile dysfunction 056317594 N52.9 [id number] YAMILE JONES MD [facility] [address] [place] [address] [address] [address] 03/20/2021 14:16:02 03/20/2021 14:56:43 Ankle pain 628810858 M25.579 Possibly gout. Will check uric acid levels and start him on low-dose Medrol pack. We will also get imaging studies. If gout is ruled out will refer him to orthopedic s. Persistent insomnia 1918 58358 G47.09 Administra tion of influenza vaccine 24873493 Z23 [id number] YAMILE JONES MD [facility] [address] [place] [address] [address] [address] 05/02/2021 11:32:44 05/02/2021 12:00:56 Essential hypertension 64723400 I10 Blood pressure readings 145/83. If his blood pressure stays high will adjust his regimen. Patient ad vised about anti-malaria prophylaxis 056482367 Z71.89 Going to [place]. 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 Most likely pseudogout . [id number] YAMILE JONES MD [facility] [address] [address] 08/08/2021 11:35:26 08/08/2021 12:15:33 Essential hypertension 03089943 I10 Blood pressure readings 145/83. If his blood pressure stays high will adjust his regimen. Paroxysmal atrial fibrillation 752505205 I48.0 [id number] Sc score of 1.. No recent episode of atrial fibrillati on. Followed by cardiology . Continue with calcium channel blockers. Cerebral arteriovenous malformation 509737666 Q28.2 Due to see neurosurge on at [place] in October 2021. Denies any symptoms. Prediabetes 135349578 R7 3.03 We will recheck labs in October 2021. Pure hypercholesterolemia 538127261 E78.00 Lipid panel dated 02/12/2021 : Total cholestero l 176, triglyceri evans 84, HDL 28, LDL 132. 10-year cardiovasc ular risk is 10.1%. He is not keen on starting a statins as yet. We will continue to monitor. [id number] YAMILE JONES MD [facility] [address] [address] 11/10/2021 08:51:54 11/10/2021 10:52:20 Essential hypertension 64109715 I10 Blood pressure reading is slightly elevated today 151/103, repeat 140s/60spa tient is concerned that his blood pressure fluctuates at homeencour aged to record his BP for 1 weekcontin ue valsartan- HTZ for now Paroxysmal atrial fibrillation 759116646 I48.0 [id number] Sc score of 1.. No recent episode of atrial fibrillati on, although lately has been having palpitatio ns, suspected to be PVCS by Dr. Hernandez. Holter monitor recently done.Irma nue diltiazem Cerebral arteriovenous malformation 775807615 Q28.2 Patient has scheduled appointmen t with neurosurge on at [place] October 2021.MRA done 08/2020: left frontal small AVMS, 7 mm aneurysm, not grown in sizewill repeat MRA before his appointmen t Pure hypercholesterolemia 281097728 E78.00 Lipid panel dated 02/12/2021 : Total cholestero l 176, triglyceri evans 84, HDL 28, LDL 132. 10-year cardiovasc ular risk is 10.1%. He is not keen on starting a statins as yet. We will continue to monitor. Intermitte nt palpitations 677516266 R00.2 Patient had intermitte nt palpitatio ns and dyspnea on exertionPa tient wore holter monitor for 24 hoursDr. Raineer suspected PVCS - EKG was abnormal , CXR completedi s scheduled for echocardio gram and nuclear stress test Adult [facility] th examination 276432772 Z00.00 Acid reflux 270061723 K2 1.9 no issues with acid reflux latelyhas omeprazole 40 mg, taking as needed Depression screening 171 219888 Z13.31 PHQ score is 0 Screening for malignant neoplasm of prostate 732852938 Z12.5 PSA last checked 01/2021: 0.9patient has 1 night time awakening, some retention, but not impacting day to daywill repeat PSA in 2022 Screening for malignant neoplasm of colon 784005521 Z12.11 Patient had colonoscop y 02/04/21: a few polyps removed including 10 mm pedunculat ed at hepatic flexure, small flat sessile at transverse , descending colon, sigmoid colon.cayden ent will likely need to go back for repeat in 3 years Body mass index 25-29 - overweight 459447937 Z68.26 [id number] YAMILE JONES MD [facility] [address] [facility] [address] [place] [address] 12/02/2021 13:28:11 12/02/2021 13:54:55 Chondrocalcinosis due to pyrophosphate crystals 725104074 M11.80 Normal uric acid levels. Most likely pseudogout . Pain of le ft ankle joint 3086529412 3347643 M25.572 Cerebral arteriovenous malformation 401096670 Q28.2 Latest MRI shows lack of blood supply to the AVMs. He is followed by neurosurge ry at [place]. Pure hypercholesterolemia 898960861 E78.00 Lipid panel dated 11/10/2021: Total cholestero l 147, triglyceri evans 70, HDL 29, LDL 104. 10-year cardiovasc ular risk is 10.8%. Once again discussed with him about benefits of statin. Continue with low-choles terol diet and lifestyle modificati ons for now. Prediabetes 038056048 R7 3.03 Hemoglobin A1c has come down from 6.0-5.9. Once again discussed with him about diet and lifestyle modificati ons. Essential hypertension 27247115 I10 Systolic blood pressure is much better at 128. Diastolic blood pressure still high at 94. Continue with valsartan 320? h ydrochloro thiazide 25 1 tablet daily. [id number] YAMILE JONES MD [facility] [place] [address] [address] 01/26/2022 10:00:15 01/26/2022 10:35:56 Administration of influenza vaccine 26769382 Z23 Essential hypertension 63567627 I10 Blood pressure is well controlled at 135/87. Would prefer to be less than 130 in view of dilated ascending aorta. Cerebral arteriovenous malformation 699663118 Q28.2 Followed by neurosurge ry at [place]. Had CT angiogram done recently which showed resolution of AVMs. He is status post CyberKnife surgery to the AVMs. Prediabetes 680606408 R7 3.03 Last hemoglobin A1c was 5.9 in October 2021. We will continue to monitor. Paroxysmal atrial fibrillation 892452651 I48.0 [id number] Sc score of 1.. No recent episode of atrial fibrillati on. Followed by cardiology as well. Relative contraindi cation for anticoagul ation because of history of AVM intracrani ally. Ascending aorta dilatation 690354777 I77.810 Last echocardio gram done at cardiologi office showed dilatation of ascending aorta at 4.2 cm which was confirmed on previous CT angiogram. We will continue to monitor annually. Patient ad vised about anti-malaria prophylaxis 366961718 Z71.89 Start 2weeks before exposure and then continue for 4 weeks after returning back to [place]. Primary er ectile dysfunction 082324235 N52.9 [id number] YAMILE JONES MD [facility] [address] [address] 06/01/2022 10:20:41 06/01/2022 11:03:54 Essential hypertension 65619584 I10 Today's blood pressure readings are 134/92. We will refer diastolic blood pressure to be less than 90. For now continue with valsartan 320? h ydrochloro thiazide 25 mg daily. He is also on diltiazem. Dysuria 59026492 R30.0 Most likely chlamydia though he tested negative. We will repeat labs. Also advised to find the exact name of antibiotic s he took recently. We will also refer to urology. If symptoms persist may consider treating him empiricall y with Rocephin and doxycyclin e. [id number] Pam Wayne APN [facility] [address] [address] 06/08/2022 13:42:33 06/08/2022 13:58:39 Urinary tract infectious disease 59814029 N39.0 [id number] YAMILE JONES MD [facility] [address] [address] 08/18/2022 08:57:48 08/18/2022 11:52:14 Neck pain 72080034 M54.2 This appears to be musculoske letal by clinical exam. Will try low-dose muscle relaxers and Medrol Dosepak. If no response will refer him to orthopedic s. Throat and ear exam is benign. He already finished antibiotic s. Cerebral arteriovenous malformation 843459851 Q28.2 Last MRI was in August 2021 which showed occlusion of the AV malformati ons. We will repeat MRI. Benign ess ential hypertension 8980658 I10 Blood pressure is elevated again in 150/90. He was seen by cardiologi recently who switched calcium channel blockers to carvedilol 25 mg twice daily. Target is at least less than 140 systolic. If pressure continues to remain high may add hydralazin e. Patient ad vised about anti-malaria prophylaxis 172696597 Z71.89 Start 2weeks before exposure and then continue for 4 weeks after returning back to [place]. He is flying back to [place] next week. Needs malaria prophylaxi s. [id number] YAMILE JONES MD [facility] [address] [place] [address] [address] 10/20/2022 08:55:23 10/20/2022 09:55:49 Essential hypertension 22463849 I10 Blood pressure well controlled at 130/86 today. Currently he is on valsartan 320 mg? h ydrochloro thiazide 25 mg daily and carvedilol . Cerebral arteriovenous malformation 408725546 Q28.2 Repeat MRA brain showed resolution of AV malformati ons left frontal lobe. He is also followed by neurosurge on at [place]. Paroxysmal atrial fibrillation 435090471 I48.0 [id number] Sc score of 1.. No recent episode of atrial fibrillati on. Followed by cardiology as well. No recent episode of atrial fibrillati on. Increased frequency of urination 603216541 R35.0 He was seen by urologist who did cystoscopy which according to the patient was normal. We will get copy of consult note. He is off alfuzosin now. [id number] YAMILE JONES MD [facility] [address] [place] [address] [address] 11/13/2022 11:30:26 11/13/2022 12:35:23 New daily persistent headache 8132506454 00207 G44.52 Considerin g history of AV malformati ons will do stat CT imaging to rule out intracrani al bleed. Cerebral arteriovenous malformation 856148007 Q28.2 Repeat MRA brain showed resolution of AV malformati ons left frontal lobe. He is also followed by neurosurge on at [place]. Migraine with aura 04026 06 G43.109 He never had history of migraines in the past we will give him a trial of Nurtec. If headaches persist may have to see neurologis t. Trigeminal neuralgia is also a possibilit y. Essential hypertension 51297029 I10 Currently he is on valsartan 320 mg? h ydrochloro thiazide 25 mg daily and carvedilol . Diastolic blood pressure slightly elevated 96. Home blood pressure readings are usually in 80s. These numbers are not the cause of his headaches we will continue to monitor. Leukocytosis 212861195 D 72.829 Most likely reactive as he was on steroids at that time. We will repeat with next set of labs. [id number] YAMILE JONES MD [facility] [address] [place] [address] [address] 11/20/2022 14:11:54 11/20/2022 14:52:44 Migraine without aura 58705086 G43.[address] CT angiogram of the brain did not show any aneurysm or intracrani al bleed. Encourage patient to follow-up with neurologis t at [place]. He follows with neurosurge ry as well. He did show response to Nurtec. We will give another prescripti on along with samples. He still can take Fioricet on as-needed basis. Solitary n odule of lung 681026441 R91.1 Incidental finding of 2 mm nodule left lung. With history of smoking we will CT chest in 6 to 12 months which will be May 2023. Ascending aorta dilatation 186864767 I77.[address] angiogram of the chest and neck showed incidental finding of dilated ascending aorta at 4.2 cm. This finding was also documented on previous echocardio gram. We will continue to monitor. [id number] YAMILE JONES MD [facility] [address] [place] [address] [address] 02/16/2023 08:17:01 02/16/2023 09:06:30 Adult health examination 194315673 Z00.00 Depression screening 171 780436 Z13.31 PHQ score is 0 Screening for malignant neoplasm of prostate 927679290 Z12.5 PSA last checked 01/2021: 0.9patient has 1 night time awakening, some retention, but not impacting day to daywill repeat PSA in 2022 Body mass index 25-29 - overweight 086565217 Z68.26 His BMI is 25.1. Discussed with him about healthy lifestyle. Ascending aorta dilatation 721778986 I77.810 He has history of 4.2 cm dilatation of ascending aorta for which she is followed by vascular surgery at [place]. Cerebral arteriovenous malformation 716614346 Q28.2 Repeat MRA brain showed resolution of AV malformati ons left frontal lobe. He is also followed by neurosurge on at [place]. Essential hypertension 52074523 I10 Blood pressure today is 119/85. Continue with valsartan/ hydrochlor othiazide. Family his tory of aneurysm of abdominal aorta 802144683 Z82.49 Normal ultrasound of the aorta in 2020. History of polyp of colon 408681249 Z86.010 Status post colonoscop y January 2021. Benign polyps on colonoscop y. For repeat colonoscop y in 2023. Paroxysmal atrial fibrillation 856636193 I48.0 [id number] Sc score of 1.. No recent episode of atrial fibrillati on. Currently is on carvedilol . Heart rate is well-contr olled. Not a candidate for DOAC's. Followed by cardiology at [place]. Prediabetes 995886004 R7 3.03 Last hemoglobin A1c was 5.9 in October 2021. We will continue to monitor. Patient ad vised about anti-malaria prophylaxis 869518252 Z71.89 Start 2weeks before exposure and then continue for 4 weeks after returning back to [place]. He is flying back to [place] next week. Needs malaria prophylaxi s. Pure hypercholesterolemia 316499277 E78.00 Lipid panel dated 11/10/2021: Total cholestero l 147, triglyceri evans 70, HDL 29, LDL 104. 10-year cardiovasc ular risk is 10.8%. Will repeat lipid panel. Solitary n odule of lung 084719387 R91.1 Incidental finding of 2 mm nodule left lung. With history of smoking we will CT chest in 6 to 12 months which will be May 2023. Tobacco de pendence in remission 129890645 F17.201 Prior to this he was only smoking 2 to 3 cigarettes a day. Now he stopped smoking altogether . Overall he has only 10-pack-ye ar history of smoking. Administra tion of influenza vaccine 59443400 Z23 Peptic ulcer 66855045 K2 7.9 Migraine without aura 56 953137 G43.009 Has responded well to Nurtec. Continue with the same as needed. [id number] YAMILE JONES MD [facility] [address] [place] [address] 04/21/2023 08:38:22 04/21/2023 10:00:10 Screening for malignant neoplasm of prostate 846236701 Z12.5 Repeat PSA 0.9 Ascending aorta dilatation 601448948 I77.810 He has history of 4.2 cm dilatation of ascending aorta for which he is followed by Vascular Surgery at [place] with yearly follow up. Cerebral arteriovenous malformation 816563208 Q28.2 Repeat MRA brain showed resolution of AV malformati ons left frontal lobe. He is also followed by Neurosurge on at [place]. Essential hypertension 35659084 I10 Blood pressure today is 119/85. Continue with amlodipine , coreg, valsartan/ hydrochlor othiazide. He is also followed by Cardiology . History of polyp of colon 725909448 Z86.010 Status post colonoscop y January 2021. Benign polyps on colonoscop y. Due for repeat colonoscop y in 2023. Paroxysmal atrial fibrillation 176342214 I48.0 [id number] Sc score of 1. Heart rate controlled on coreg. Followed by Cardiology . Prediabetes 375833741 R7 3.03 Last hemoglobin A1c was 6.1 in February 2023. Advised diet and lifestyle modificati ons. Pure hypercholesterolemia 359734535 E78.00 Lipid panel dated 03/13: Total cholestero l 177, triglyceri evans 110, HDL 30, LDL 124. 10-year cardiovasc ular risk is 10.4%. Will first evaluate with coronary calcium score. Then, can consider starting statin for primary prevention . Solitary n odule of lung 454740187 R91.1 Incidental finding of 2mm nodule left lung. With history of smoking we will repeat CT chest in 6 to 12 months which will be May 2023. Migraine without aura 56 947260 G43.009 Migraines resolved, [facility] disease without esophagitis 395999382 K21.9 Abdominal pain improved, continue omeprazole [id number] YAMILE JONES MD [facility] [address] [address] 08/19/2023 08:54:21 08/19/2023 09:55:58 Essential hypertension 17104373 I10 Blood pressure today is 120/70. Continue with amlodipine , coreg, valsartan/ hydrochlor othiazide. He is also followed by Cardiology and last appointmen t was last week. Paroxysmal atrial fibrillation 022302846 I48.0 He is not on anticoagul ation since [id number] Sc score of 1. Heart rate controlled on coreg. Followed by Cardiology . Primary er ectile dysfunction 908654769 N52.9 Continue with todalafil. Prediabetes 523866217 R7 3.03 Last hemoglobin A1c was 6.1 in February 2023. Advised diet and lifestyle modificati ons. He has gained about 10 pounds over the last few months. Tobacco de pendence in remission 863930204 F17.201 He has stopped smoking entirely. His has a total 10 year smoking history. Solitary n odule of lung 459206231 R91.1 Incidental finding of 2mm nodule left lung. Repeat CT showed no nodule. Peptic ulcer 09259013 K2 7.9 Gastroesop hageal reflux disease without esophagitis 846068197 K21.9 Abdominal pain improved, continue omeprazole Cerebral arteriovenous malformation 783265499 Q28.2 Repeat MRA brain showed resolution of AV malformati ons left frontal lobe. He is also followed by Neurosurge on at [place]. Ascending aorta dilatation 790689027 I77.810 He has history of 4.2 cm dilatation of ascending aorta for which he is followed by Vascular Surgery at [place] with yearly follow up. He had a repeat CT that showed no significan t change Dilation measured 4.0 x 4.0 cm. Pulmonary emphysema [address] chest from 04/28/23 showed emphysemat ous change. He is says he does get short of breath and start wheezing with exertion. Will give rescue inhaler. Patient ad vised about anti-malaria prophylaxis 142664756 Z71.89 He is leaving for [place] within the next few days. He should ideally have prophylaxi s 2 weeks before leaving and plan to continue for 4 weeks after returning to [place]. Pure hypercholesterolemia 598718120 E78.00 Lipid panel dated 03/13: Total cholestero l 177, triglyceri evans 110, HDL 30, LDL 124. 10-year cardiovasc ular risk at that time was 10.4%. CAC showed no calcificat ion. Continue Rosuvastat in 5mg daily. Ground glass opacity 261 6719415 R91.[address] and recommende d 3 month follow up. [id number] YAMILE JONES MD [facility] [place] [address] [address] 10/26/2023 14:54:04 10/26/2023 15:57:14 Restrictive lung disease 39360367 J98.4 Recent PFTs showed evidence of restrictiv e airways disease with total lung capacity of 63%. There was no evidence of obstructio n. He is completely asymptomat ic. No need for any bronchodil ators at present time. Repeat CT chest showed resolution of groundglas s appearance with stable 3 mm lung nodule right lower lobe. Essential hypertension 78509266 I10 Continue with amlodipine , coreg, valsartan/ hydrochlor othiazide. Blood pressure continues to be well-contr olled at 134/73. Paroxysmal atrial fibrillation 998493099 I48.0 He is not on anticoagul ation since [id number] Sc score of 1. Heart rate is well-contr olled at 76/min. Denies any palpitatio ns. Arterioscl erosis of artery of lower extremity 668468149 I70.209 Considerin g history of smoking in the past and multiple comorbid condition including hyperchole sterolemia and hypertensi on we will screen him for peripheral vascular disease. Edema of l eft lower leg 282423010 R60.0 Has ongoing edema left leg which might be due to nifedipine . Since swelling is unilateral will arrange for venous Doppler. Will also do venous Doppler right leg because of calf pain. WELLS scoreis 0 for VTE. [id number] YAMILE JONES MD [facility] [place] [address] [address] 11/18/2023 09:16:33 11/18/2023 10:08:07 Body mass index 25-29 - overweight 393359123 Z68.26 His BMI is 25.1. Discussed with him about healthy lifestyle. Essential hypertension 93056972 I10 Continue with coreg, valsartan/ hydrochlor othiazide. Blood pressure continues to be well-contr olled at 133/72 Prediabetes 605010074 R7 3.03 Last hemoglobin A1c was 6.1 in February 2023. Advised diet and lifestyle modificati ons. He has gained about 10 pounds over the last few months. Peripheral vascular disease 814378212 I73.9 [id number] YAMILE JONES MD [facility] [address] [address] 02/29/2024 14:05:33 02/29/2024 14:24:36 Foreign travel education 283364366 Z71.84 He already has mefloquine for malaria prophylaxi s. Bilateral lower leg edema 088095090 R60.0 Edema subsided after stopping nifedipine . Essential hypertension 59419194 I10 Blood pressure still well-contr olled in the range of 1 20-1 30 systolic even after stopping nifedipine . Currently he is on valsartan 320? h ydrochloro thiazide 25 mg daily along with carvedilol 25 mg daily. If blood pressure is still out of control may have to add hydralazin e or clonidine. Primary er ectile dysfunction [id number] N52.9 Continue with todalafil. 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 [id number] Nkemdirim Kelsie 08/19/2023 1 [place] [employer] [place] [id number] [place] Kelsie [id number] Nkemdirim 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 Saw Manager Labor Delivery yesterday, they did not make any changes to his medication regimen. No chest pain, shortness of breath. Abdominal pain resolved after starting omeprazole. YAMILE JONES MD [address] [place], [address], [place] 04/21/2023 09:57:50 08/19/2023 text/html Mr. Iglesias presents today for follow up. He says he is feeling well. He has stopped smoking entirely and stopped taking Chantix. He says he occasionally gets cravings but he is able to overcome them. He says he no longer gets migraines. His recent imaging showed emphysema. He says that he does sometimes get short of breath when he is exerting himself. During those times, he can feel himself wheezing. He denies any other respiratory symptoms. No coughing or chest tightness. YAMILE JONES MD [address] [place], [address], [place] 08/19/2023 09:56:46 10/26/2023 text/html He recently underwent PFTs which showed restrictive airway disease without any evidence of obstruction. He never tried the inhaler. Denies any shortness of breath or wheezing. Good exercise tolerance. He does admit to being exposed to some chemicals at his office for almost a year until a month ago when he moved. Repeat CT chest showed resolution of groundglass appearance right upper lobe. 3 mm nodule is stable in size. Also complaining of pain right calf specially after walking for more than 4 weeks. This has been happening even before he traveled to [facility]. Also left leg swells up on prolonged standing. YAMILE JONES MD [address] [place], [address], [place] 10/26/2023 15:55:01 11/18/2023 text/html 53 yo m pmh of [place] presenting to the office for a follow up visit. He has been having this Right sided calf pain for 3 months that hinders his ability to exercise. He denies any hair loss in the leg, but endorses it gets hot . He had a DVT study completed of his Right lower extremity which he wants to go over results for. Otherwise, no other acute complaints. YAMILE JONES MD [address] [place], [address], [place] 11/18/2023 10:06:56 02/29/2024 text/html He is leaving [facility] in couple of weeks. Already has prescription for mefloquine for malaria prophylaxis. Stopped nifedipine because of ankle edema. Blood pressure still well-controlled using the range of 1 20-1 30 systolic. YAMILE JONES MD [address] [place], [address], [place] 02/29/2024 14:24:05
--- OUTSIDE RECORDS SUMMARY | 2024-04-18 05:25 | XMS_ITS | Encounter Summary ---
Author Organization [facility] Address [address] [place] [address] Care Team Providers Care All Terrain Vehicle Technician Name Role Phone Fercho Gómez MD Primary Care Provider Encounter Details Date Type Department Care Team (Late st Contact Info) Description 11/26/2022 Procedure [facility] [address] [facility] [place] [address] Social History Tobacco Use Types [...] on filedocumented in this encounter Care Teams All Terrain Vehicle Technician Relationship Specialty Start Date End Date Fercho Gómez MD [address] [place] [address] PCP - General Internal Medicine 10/16/21 documented as of this encounter
--- OUTSIDE RECORDS SUMMARY | 2024-04-18 05:26 | XMS_ITS | Encounter Summary ---
Author Organization [facility] Address [address] [place] [address] Care Team Providers Care Missing Persons Investigator Name Role Phone Fercho Gómez MD Primary Care Provider Encounter Details Date Type Department Care Team (Late st Contact Info) Description 01/02/2022 Orders Only [facility] [address] [address] Outside, Provider Social History Tobacco Use Types Packs/Day Years Used Date Smoking Tobacco: Every Day Cigars Smokeless Tobacco: Never Alcohol Use Standard Drinks/Week Comments Yes 0 (1 standard drink = 0.6 oz pur e alcohol) PHQ-2 Answer Date Recorded PHQ-2 Score 0 10/29/2021 Sex and Gender Information Value Date Recorded [...] have difficulty dressing or bat marco? No 10/29/2021 documented as of this encounter Plan of Treatment Not on file documented as of this encounter Procedures Procedure Name Priority Date/Time Associated Diagnosis Comments SCANNED RESULT (IMAGING) Routine 12/08/2021 documented in this encounter Results * SCANNED RESULT (IMAGING) (12/08/2021) Provider Outside RADIOLOGY CPT CODES documented in this encounter Visit Diagnoses Not on filedocumented in this encounter Care Teams Missing Persons Investigator Relationship Specialty Start Date End Date Fercho Gómez MD [address] [place] [address] PCP - General Internal Medicine 10/16/21 documented as of this encounter
--- OUTSIDE RECORDS SUMMARY | 2024-04-18 05:26 | XMS_ITS | Encounter Summary ---
Author Organization [facility] Address [address] [place] [address] Care Team Providers Care Registered Nurse Teacher Name Role Phone Fercho Gómez MD Primary Care Provider Encounter Details Date Type Department Care Team (Late st Contact Info) Description 10/27/2021 Orders Only [facility] [address] [place] [address] Outside, Provider Social History Tobacco Use Types Packs/Day Years Used Date Smoking Tobacco: Never Assessed PHQ-2 Answer Date Recorded PHQ-2 Score 0 10/29/2021 Sex and Gender Information Value Date Recorded Sex Assigned at Male 01/11/2023 9:19 AM EDT Gender Identity Male 01/11/2023 9:19 AM EDT Sexual Orientation Straight 01/11/2023 9: 19 AM EDT Job Start Date Occupation Industry Not on file Not on file Not on file documented as of this encounter Plan of Treatment Not on file documented as of this encounter Procedures Procedure Name Priority Date/Time Associated Diagnosis Comments OUTSIDE LAB RESULTS Routine 03/21/2021 OUTSIDE LAB RESULTS Routine 02/14/2021 documented in this encounter Results * OUTSIDE LAB RESULTS (03/21/2021) _ Provider Outside LAB BLOOD ORDERABLES * OUTSIDE LAB RESULTS (02/14/2021) _ Provider Outside LAB BLOOD ORDERABLES documented in this encounter Visit Diagnoses Not on filedocumented in this encounter Care Teams Registered Nurse Teacher Relationship Specialty Start Date End Date Fercho Gómez MD [address] [place] [address] PCP - General Internal Medicine 10/16/21 documented as of this encounter
--- OUTSIDE RECORDS SUMMARY | 2024-04-18 05:26 | XMS_ITS | Encounter Summary ---
Author Organization [facility] Address [address] [place] [address] Care Team Providers Care Hand Tool Filer Name Role Phone Fercoh Gómez MD Primary Care Provider Encounter Details Date Type Department Care Team (Late st Contact Info) Description 01/05/2022 Orders Only [facility] [address] [place] [address] Outside, Provider Social History Tobacco Use Types Packs/Day Years Used Date Smoking Tobacco: Every Day Cigars Smokeless Tobacco: Never Alcohol Use Standard Drinks/Week Comments Yes 0 (1 standard drink = 0.6 oz pur e alcohol) PHQ-2 Answer Date Recorded PHQ-2 Score 0 01/09/2022 Sex and Gender Information Value Date Recorded [...] Associated Diagnosis Comments OUTSIDE LAB RESULTS Routine 11/14/2021 documented in this encounter Results * OUTSIDE LAB RESULTS (11/14/2021) _ Provider Outside LAB BLOOD ORDERABLES documented in this encounter Visit Diagnoses Not on filedocumented in this encounter Care Teams Hand Tool Filer Relationship Specialty Start Date End Date Fercho Gómez MD [address] [place] [address] PCP - General Internal Medicine 10/16/21 documented as of this encounter
--- OUTSIDE RECORDS SUMMARY | 2024-04-18 05:26 | XMS_ITS | Encounter Summary ---
Author Organization [facility] Address [address] [place] [address] Care Team Providers Care Interlibrary Loan Services Librarian Name Role Phone Fercho Gómez MD Primary Care Provider Encounter Details Date Type Department Care Team (Late st Contact Info) Description 10/30/2021 Scanned Document [facility] [address] [place] [address] Provider, Onbase Documents Social History Tobacco Use Types Packs/Day Years [...] Date/Time Associated Diagnosis Comments SCANNED RESULT (IMAGING) 10/30/2021 12:00 PM EDT documented in this encounter Results * SCANNED RESULT (IMAGING) (10/30/2021 12:00 PM EDT) Narrative 10/30/2021 12:00 PM EDT Ordered by an unspecified provider. Onbase Documents Provider RADIOLOGY CPT CODES documented in this encounter Visit Diagnoses Not on filedocumented in this encounter Care Teams Interlibrary Loan Services Librarian Relationship Specialty Start Date End Date Fercho Gómez MD [address] [facility] [place] [address] PCP - General Internal Medicine 10/16/21 documented as of this encounter
--- OUTSIDE RECORDS SUMMARY | 2024-04-18 05:26 | XMS_ITS | Encounter Summary ---
Author Organization [facility] Address [address] [place] [address] Care Team Providers Care Chamber Worker Name Role Phone Fercho Gómez MD Primary Care Provider Encounter Details Date Type Department Care Team (Late st Contact Info) Description 10/31/2021 Scanned Document [facility] [address] [place] [address] Provider, Onbase Documents Social History Tobacco Use [...] on filedocumented in this encounter Care Teams Chamber Worker Relationship Specialty Start Date End Date Fercho Gómez MD [address] [place] [address] PCP - General Internal Medicine 10/16/21 documented as of this encounter
== END 2024-04-18 07:00 | disposition home or self-care (01) ==
LOC: ANHED 05:23
PROVIDERS: Emergency Provider Student in an Organized Health Care Education/Training Program
DX: J10.1 Influenza due to other identified influenza virus with other respiratory manifestations (principal); Z20.822 Contact with and (suspected) exposure to COVID-19
CPT/HCPCS: 71045; 87637; 93005; 99283; A9270